=== PATIENT | male | born 1940 | race Caucasian/White ===

== ENCOUNTER 2019-06-04 12:51 | Outpatient (CLI) | payer MEDICARE, SELFPAY ==
[2019-06-04 14:09] LABS: Hematocrit 26.4 % (42.0-52.0); Hemoglobin 8.3 g/dL (14.0-18.0)
[2019-06-04 14:51] LABS: Iron 47 ug/dL (49-181)
[2019-06-04 15:00] LABS: Percent Iron Saturation 13 % (20-50)
== END 2019-06-04 12:52 | disposition home or self-care (01) ==
PROVIDERS: PCP Internal Medicine; Visit Provider Internal Medicine
DX: D64.9 Anemia, unspecified (principal); D50.9 Iron deficiency anemia, unspecified
CPT/HCPCS: 36415; 82607; 83540; 83550; 85014; 85018

== ENCOUNTER 2019-06-14 12:49 | Outpatient (CLI) | payer MEDICARE, SELFPAY ==
--- NOTE | ~2019-06-14 | XR_ITS ---
XR chest 2V DATE: 06/14/2019 13:31 INDICATION: Long-term use of amiodarone. Weakness. TECHNIQUE: PA and lateral views COMPARISON: 12/11/2017 portable AP chest FINDINGS: Status post posterior cervical spine surgical fusion. Right glenohumeral arthroplasty. Normal heart size. Aortic calcification and tortuosity. No hilar or mediastinal enlargement. No pulmonary infiltrate or consolidation, pleural effusion or pulmonary vascular congestion or pneumo thorax. Diffuse idiopathic skeletal hyperostosis of the thoracic spine. IMPRESSION: No active cardiopulmonary disease Reviewed, dictated and finalized at location B.
[2019-06-14 14:09] LABS: Basophils Percent Auto 0.2 % (0.2-1.2); Eosinophils Percent Auto 0.2 % (0-4.4); Immature Granulocyte Absolute 0.08 K/mm3 (0.00-0.031); Immature Granulocyte Percent A 0.9 % (0-0.5); Lymphocytes Percent Auto 8.9 % (18.3-44.2); Mean Corpuscular HGB Conc 28.4 g/dl (32-36); Mean Corpuscular Hemoglobin 34.6 pg (26-34); Mean Platelet Volume 11.3 fl (7.4-10.4); Monocytes Percent Auto 11.6 % (2.6-8.5); Neutrophils Percent Auto 78.2 % (45.5-73.1); Nucleated Red Blood Cells Absolute Auto 0.3 K/mm3 (0.0-0.012); Nucleated Red Blood Cells Perc 3.6 % (0.0-0.2); Platelet Count Result 235 k/mm3 (150-375); Red Blood Count 1.27 M/mm3 (4.6-6.20); Red Cell Distribution Width 19.6 % (11.5-14.5)
[2019-06-14 14:22] LABS: Alanine Aminotransferase 25 U/L (4-50); Albumin Level 3.1 g/dL (3.5-5.1); Alkaline Phosphatase 73 U/L (38-126); Aspartate Amino Transferase 37 U/L (17-59); Bilirubin,Total 0.3 mg/dL (0.2-1.3); Blood Urea Nitrogen 34 mg/dL (9-20); Calcium 8.5 mg/dL (8.4-10.2); Carbon Dioxide 23 mmol/L (22-30); Chloride 106 mmol/L (98-107); Estimated Glomerular Filt Rate 59; Glucose 175 mg/dL (75-110); Potassium 3.5 mmol/L (3.4-5.0); Sodium 137 mmol/L (137-145)
[2019-06-14 14:38] LABS: Hematocrit 15.5 % (42.0-52.0); Hemoglobin 4.4 g/dL (14.0-18.0)
[2019-06-14 14:39] LABS: Hypochromasia 2+ (NORMAL); Macrocytosis 2+ (NORMAL); Platelet Estimate Adequate (Adequate); Poikilocytosis 1+ (NORMAL)
[2019-06-14 14:58] LABS: Free T4 Free Thyroxine 0.55 ng/mL (0.78-2.19)
== END 2019-06-14 12:50 | disposition home or self-care (01) ==
PROVIDERS: PCP Internal Medicine; Visit Provider Internal Medicine Cardiovascular Disease
DX: Z79.899 Other long term (current) drug therapy (principal)
CPT/HCPCS: 36415; 71046; 80053; 84439; 84443; 85025

== ENCOUNTER 2019-06-14 15:47 | Inpatient (IN) | payer MEDICARE, SELFPAY ==
[2019-06-14] VITALS (21 sets, daily range): BP systolic 122–142; BP diastolic 48–99; PULSE 78–94; RESP 14–25; TEMP 36.3–36.9; O2SAT 60–100
--- NOTE | ~2019-06-14 | XR_ITS ---
EXAMINATION: XR UGI w small bowel EXAM DATE: 06/17/2019 10:17 INDICATION: Upper GI bleed, uncertain origin. Anemia. TECHNIQUE: Molder Offbearer radiograph was acquired. Standard single contrast barium upper GI examination was pe rformed followed by small bowel series according to patient abilities (mobility limitations). Spot i mages of the terminal ileum were acquired. The DAP for this procedure was 50 Gycm2. FINDINGS: Esophagus was not evaluated. The stomach has a normal appearance without evidence of mass lesion, ulc eration or filling defect. There is normal rugal fold pattern. The duodenum and duodenal sweep are normal in appearance. Ileal and jejunal fold patterns are normal. There is no small bowel wall thickening or mass effect d isplacing small bowel. There are no intraluminal filling defects identified. There is no small eloy l dilation. Terminal ileum is normal in appearance. Contrast reached the colon between 30 and 45 mi nutes time. IMPRESSION: Unremarkable stomach and small bowel. Reviewed, dictated and finalized at location A.
--- NOTE | 2019-06-14 16:03 | ECG_ITS ---
Measurements Intervals [place] Rate: 81 P: 23 IA: 202 QRS: 39 QRSD: 94 T: 60 QT: 305 QTc: 354 Interpretive Statements SINUS RHYTHM WITH FIRST DEGREE AV BLOCK INCOMPLETE RIGHT BUNDLE BRANCH BLOCK BORDERLINE ST-T WAVE ABNORMALITY- LATERAL LEADS BASELINE ARTIFACT- I, II, III, AVR, AVL, AVF, V1 ABNORMAL ECG Electronically Signed On 06-14-2019 17:07:53 CDT by Waqas Baum D.O.
--- NOTE | 2019-06-14 16:03 | ED.RECABL ---
HPI - Recheck/Abnormal Lab/Rx General Chief Complaint: Recheck/Abnormal Lab/Rx Stated Complaint: low blood count Time Seen by Provider: 06/14/19 16:01 Source: patient and RN notes reviewed Mode of arrival: other Limitations: no limitations History of Present Illness HPI narrative: Pt is a 79 y/o male who presents to the ED, from Dr. Mendoza's office, with c/o low H&H that began this morning. Pt's H&H while at Dr. Mendoza's office was 4.4. Pt also reports chronic dark stool d/t his iron pills and moderate SOB that is worsened with exertion. Pt denies blood in his stools, fever, cough, nausea, vomiting, and abdominal pain. Pt is taking Xarelto. complaint: abnormal lab Initial visit (ago): hour(s) Returns today for: called because of abnormal lab/test Description of abnormal result: Low H&H. Context: called for abnormal lab result Associated symptoms: shortness of breath (moderate, worsened with exertion) and other (chronic melena d/t his iron pills) Related Data Home Medications Medication Instructions Recorded Confirmed amiodarone 200 mg tablet 200 mg PO DAILY 03/30/19 atorvastatin 20 mg tablet 20 mg PO DAILY 03/30/19 diltiazem HCl 240 mg 240 mg PO DAILY 03/30/19 capsule,extended release 24 hr ibuprofen 600 mg tablet 600 mg PO TID 03/30/19 metformin 500 mg tablet 500 mg PO DAILY 03/30/19 rivaroxaban 20 mg tablet 20 mg PO QPM 03/30/19 ferrous sulfate [Feosol] 325 mg PO BID 06/14/19 Allergies Allergy/AdvReac Type Severity Reaction Status Date / Time No Known Allergies Allergy Verified 06/14/19 15:58 Review of Systems Review of Systems: Narrative: CONSTITUTIONAL: Denies fever. RESPIRATORY: Reports moderate dyspnea. Denies cough. GASTROINTESTINAL: Reports chronic melena d/t his iron pills. Denies hematochezia, nausea, vomiting, and abdominal pain. All systems reviewed & are unremarkable except as noted in HPI and below PMFSH Past Medical History Medical History (Updated 06/14/19 @ 17:04 by Nora Alejo MD) Acute anemia Arthritis Cataracts, bilateral Essential (primary) hypertension Gastro-esophageal reflux disease without esophagitis Gastrointestinal hemorrhage, unspecified History of rectal polyps Hyperlipidemia, unspecified Inguinal hernia Iron deficiency anemia, unspecified Low back pain MRSA (methicillin resistant Staphylococcus aureus) Peripheral neuropathy Seasonal allergies Staphylococcal arthritis, right shoulder Type II diabetes mellitus Surgical History Surgical History (Updated 06/14/19 @ 16:46 by Neeta Banuelos) H/O inguinal hernia repair H/O skin graft left leg H/O spinal fusion History of knee replacement, total bilateral History of rotator cuff surgery History of spinal surgery Hx of appendectomy Hx of tonsillectomy Family History Family History (Updated 06/14/19 @ 16:47 by Neeta Banuelos) Mother Arthritis Alzheimers disease Breast cancer Father Arthritis Lung cancer Social History Social History (Updated 06/14/19 @ 16:45 by Neeta Banuelos) Smoking packs per day: 1 Smoking cigarettes per day: 20.0 Smoking status: Former smoker Tobacco type: cigarettes Smoking end date: 03/31/71 Living arrangements: with family Additional living arrangements comments: Pt lives with his . Gender identity (if verbalized by the patient): Male Exam Narrative: Exam Narrative: GENERAL: Well-appearing, well-nourished, and in no acute distress. HEAD: Normocephalic, atraumatic. EYES: PERRLA and EOMI. ENT: Nares clear, no rhinorrhea or epistaxis. Mucous membranes moist. NECK: Supple. CHEST: Clear to auscultation. No respiratory distress. HEART: Regular rate and rhythm. No murmur heard. Normal peripheral pulses. EXTREMITIES: Normal range of motion. No edema. SKIN: Pale, warm, dry, no rash. NEURO: No focal deficits. Alert and oriented X3. Course Course Emergency Course: Patient presented for evaluation of low hemoglobin as found in his cardiolo
[2019-06-14 16:13] LABS: Basophils Percent Auto 0.3 % (0.2-1.2); Eosinophils Percent Auto 0.1 % (0-4.4); Immature Granulocyte Absolute 0.08 K/mm3 (0.00-0.031); Immature Granulocyte Percent A 0.7 % (0-0.5); Lymphocytes Percent Auto 10.3 % (18.3-44.2); Mean Corpuscular HGB Conc 29.4 g/dl (32-36); Mean Corpuscular Volume 122.4 fl (80-100); Mean Platelet Volume 10.9 fl (7.4-10.4); Monocytes Absolute Auto 1.7 K/mm3 (0.1-0.6); Monocytes Percent Auto 15.8 % (2.6-8.5); Neutrophils Absolute Auto 7.8 K/mm3 (1.3-6.7); Neutrophils Percent Auto 72.8 % (45.5-73.1); Nucleated Red Blood Cells Absolute Auto 0.4 K/mm3 (0.0-0.012); Nucleated Red Blood Cells Perc 3.7 % (0.0-0.2); Platelet Count Result 231 k/mm3 (150-375); Red Blood Count 1.25 M/mm3 (4.6-6.20); Red Cell Distribution Width 19.9 % (11.5-14.5); White Blood Count 10.7 K/mm3 (4.5-10.0)
[2019-06-14 16:22] LABS: Hemoglobin 4.5 g/dL (14.0-18.0)
[2019-06-14 16:23] LABS: Hematocrit 15.3 % (42.0-52.0)
[2019-06-14 16:24] LABS: Alanine Aminotransferase 26 U/L (4-50); Albumin Level 3.1 g/dL (3.5-5.1); Alkaline Phosphatase 83 U/L (38-126); Aspartate Amino Transferase 38 U/L (17-59); Bilirubin,Total 0.3 mg/dL (0.2-1.3); Blood Urea Nitrogen 35 mg/dL (9-20); Calcium 8.4 mg/dL (8.4-10.2); Carbon Dioxide 22 mmol/L (22-30); Chloride 105 mmol/L (98-107); Estimated Glomerular Filt Rate > 60; Glucose 123 mg/dL (75-110); Potassium 3.7 mmol/L (3.4-5.0); Sodium 135 mmol/L (137-145)
[2019-06-14 16:43] LABS: INR 1.5; Partial Thromboplastin Time 26.6 SECONDS (22.3-36.8); Prothrombin Time 17.4 Seconds (11.1-14.7)
[2019-06-14] MEDS: SODIUM CHLORIDE 0.9% IV 250 ML 30 ML IV CONT (17:49)
[2019-06-14] MEDS: PANTOPRAZOLE SODIUM IV 40 MG VIAL IV PUSH (17:49)
--- NOTE | 2019-06-14 21:18 | PM.IMHP ---
H&P: HPI History of Present Illness Chief complaint: low blood count Narrative: This is a 79 year old male with known atrial fibrillation on chronic Xarelto therapy who was referred to the hospital today after he was referred by his Data Entry Supervisor, Dr. Mendoza. The patient has had chronic black stools and has had generalized weakness for some time. He did complain to his Cardilogist that his exertional shortness of breath had been worsening. He denies vomiting up any dark material, nausea, lightheadedness, dizziness, chest pain or passing out. The patient was evaluated in the ER today and found to have a H/H of 4.5/15.3. He was guaiac positive on exam in the ER today. The patient was admitted for symptomatic anemia and given 2 units of pRBCs IV. His last colonoscopy and EGD were about 4 years ago and were normal. He does see Dr. Santillan for Gastroenterology. ER provider has consulted GI. No other complaint at this time. Review of Systems Review of Systems: All systems reviewed & are unremarkable except as noted in HPI and below PMFSH Past Medical History Medical History Acute anemia Arthritis Cataracts, bilateral Essential (primary) hypertension Gastro-esophageal reflux disease without esophagitis Gastrointestinal hemorrhage, unspecified History of rectal polyps Hyperlipidemia, unspecified Inguinal hernia Iron deficiency anemia, unspecified Low back pain MRSA (methicillin resistant Staphylococcus aureus) Peripheral neuropathy Seasonal allergies Staphylococcal arthritis, right shoulder Type II diabetes mellitus Surgical History Surgical History H/O inguinal hernia repair H/O skin graft left leg H/O spinal fusion History of knee replacement, total bilateral History of rotator cuff surgery History of spinal surgery Hx of appendectomy Hx of tonsillectomy Family History Family History Mother Arthritis Alzheimers disease Breast cancer Father Arthritis Lung cancer Social History Social History Smoking packs per day: 1 Smoking cigarettes per day: 20.0 Smoking status: Former smoker Tobacco type: cigarettes Smoking end date: 03/31/71 Alcohol intake: never Substance use: never Living arrangements: with family Additional living arrangements comments: Pt lives with his . Gender identity (if verbalized by the patient): Male Spiritual care concerns: No Meds Home Medications and Allergies Home Medications Medication Instructions Recorded Confirmed Type amiodarone 200 mg tablet 200 mg PO DAILY 03/30/19 06/14/19 History atorvastatin 20 mg tablet 20 mg PO DAILY 03/30/19 06/14/19 History diltiazem HCl 240 mg 240 mg PO DAILY 03/30/19 06/14/19 History capsule,extended release 24 hr ibuprofen 600 mg tablet 600 mg PO TID 03/30/19 06/14/19 History metformin 500 mg tablet 500 mg PO DAILY 03/30/19 06/14/19 History rivaroxaban 20 mg tablet 20 mg PO QPM 03/30/19 06/14/19 History ferrous sulfate [Feosol] 325 mg PO BID 06/14/19 06/14/19 History gabapentin 300 mg PO HS 06/14/19 06/14/19 History mecobalamin (vitamin B12) [B12 1,000 mcg PO DAILY 06/14/19 06/14/19 History Active] Allergies Allergy/AdvReac Type Severity Reaction Status Date / Time No Known Allergies Allergy Verified 06/14/19 15:58 Vital Signs Vital Signs - 24 hr 06/14/19 15:52 06/14/19 15:56 06/14/19 16:01 Temperature 36.3 C L Pulse Rate 94 87 84 Respiratory Rate 23 H 25 H 22 H Blood Pressure 136/53 L 136/53 L 122/99 H Pulse Oximetry 98 06/14/19 16:16 06/14/19 16:31 06/14/19 16:46 Temperature Pulse Rate 82 83 82 Respiratory Rate 19 21 H 15 Blood Pressure 139/65 137/53 L 133/60 Pulse Oximetry 06/14/19 17:01 06/14/19 17:16 06/14/19 17:31 Temperature Pulse Rate 82 83 81 R
[2019-06-15] VITALS (20 sets, daily range): BP systolic 110–149; BP diastolic 53–77; PULSE 60–84; RESP 16–24; TEMP 36.6–36.9; O2SAT 94–100
[2019-06-15] MEDS: SODIUM CHLORIDE 0.9% IV 1,000 ML 100 ML IV CONT (03:23)
[2019-06-15 04:35] LABS: Basophils Percent Auto 0.4 % (0.2-1.2); Eosinophils Absolute Auto 0.1 K/mm3 (0-0.3); Eosinophils Percent Auto 0.9 % (0-4.4); Hematocrit 21.1 % (42.0-52.0); Immature Granulocyte Absolute 0.05 K/mm3 (0.00-0.031); Immature Granulocyte Percent A 0.7 % (0-0.5); Lymphocytes Absolute Auto 1.06 K/mm3 (0.9-3.2); Lymphocytes Percent Auto 15.5 % (18.3-44.2); Mean Corpuscular HGB Conc 30.8 g/dl (32-36); Mean Corpuscular Volume 103.9 fl (80-100); Mean Platelet Volume 10.3 fl (7.4-10.4); Monocytes Absolute Auto 1.2 K/mm3 (0.1-0.6); Monocytes Percent Auto 17.7 % (2.6-8.5); Neutrophils Absolute Auto 4.4 K/mm3 (1.3-6.7); Neutrophils Percent Auto 64.8 % (45.5-73.1); Nucleated Red Blood Cells Absolute Auto 0.2 K/mm3 (0.0-0.012); Nucleated Red Blood Cells Perc 3.1 % (0.0-0.2); Platelet Count Result 186 k/mm3 (150-375); Red Blood Count 2.03 M/mm3 (4.6-6.20); Red Cell Distribution Width 22.4 % (11.5-14.5); White Blood Count 6.8 K/mm3 (4.5-10.0)
[2019-06-15 04:50] LABS: Hemoglobin 6.5 g/dL (14.0-18.0)
[2019-06-15 04:51] LABS: Blood Urea Nitrogen 29 mg/dL (9-20); Carbon Dioxide 27 mmol/L (22-30); Chloride 108 mmol/L (98-107); Estimated Glomerular Filt Rate > 60; Glucose 106 mg/dL (75-110); Potassium 3.6 mmol/L (3.4-5.0); Sodium 135 mmol/L (137-145)
--- NOTE | 2019-06-15 07:25 | WPDGICN ---
Assessment and Plan Additional Plan This is a 79-year-old white male patient seen in evaluation at the request of the emergency room. Patient reports gradual fatigue and weakness that has progressed over the last 1-2 months. Because of weakness he was seen by cardiology Dr. Mendoza. Laboratory testing revealed rather profound anemia with a hemoglobin of 4.5. Patient states that his stools have chronically been black in nature after being placed on iron replacement. His past history is significant for atrial fibrillation for which he is on chronic Xarelto anticoagulation. Patient reports 1 year ago had weakness at that time found to have peptic ulcer disease requiring an endoscopy. Patient denies any abdominal pain. He denies any obvious change in his bowel habits. His stools have been black as they have been for 1 year. Past medical history is significant for peptic ulcer. He has a history of rectal polyps. Is known to have chronic iron deficiency anemia on iron replacement. Past history also significant for atrial fibrillation on chronic warfarin anticoagulation. Family history is noncontributory. No history of colon or rectal disease. Current medications include amiodarone, atorvastatin, diltiazem, ferrous sulfate, gabapentin, ibuprofen, B12. Metformin, Xarelto. He has no stated drug allergies. Physical exam reveals patient to be alert. Vital signs stable. He is anicteric. Lungs are clear to auscultation and percussion. Heart is without murmur or extra sounds. Abdominal exam bowel sounds are present soft nontender with no hepatosplenomegaly. Digital external rectal exam unremarkable. Stools Hemoccult positive. Laboratory work reveals hemoglobin is 6.5, hematocrit 21 MCV 103. Platelets 186 K. protime is 17.4, INR 1.5. Impression 1. GI bleeding. Given his history of gastric ulcerations and current anticoagulation with Xarelto. Plan is to transfuse to a stable hemoglobin and patient will be started on proton pump inhibitor. Xarelto will be held for the immediate future. An EGD will be performed to assess for recurrent ulcer disease. A colonoscopy may be required subsequently. 2. History of rectal polyps. This is distant history. Consider colonoscopy if no findings by EGD. Patient may benefit from elective follow-up endoscopy given his prior history of colon polyps regardless. 3. Atrial fibrillation. 4. Xarelto anticoagulation. GI Consult Note Consult date/time: 06/15/19 07:25 HPI: Maximo Olmos is a 79 year old male [facility] Past Medical History Medical History Acute anemia Arthritis Cataracts, bilateral Essential (primary) hypertension Gastro-esophageal reflux disease without esophagitis Gastrointestinal hemorrhage, unspecified History of rectal polyps Hyperlipidemia, unspecified Inguinal hernia Iron deficiency anemia, unspecified Low back pain MRSA (methicillin resistant Staphylococcus aureus) Peripheral neuropathy Seasonal allergies Staphylococcal arthritis, right shoulder Type II diabetes mellitus Surgical History Surgical History H/O inguinal hernia repair H/O skin graft left leg H/O spinal fusion History of knee replacement, total bilateral History of rotator cuff surgery History of spinal surgery Hx of appendectomy Hx of tonsillectomy Family History Family History Mother Arthritis Alzheimers disease Breast cancer Father Arthritis Lung cancer Social History Social History Smoking packs per day: 1 Smoking cigarettes per day: 20.0 Smoking status: Former smoker Tobacco type: cigarettes Smoking end date: 03/31/71 Alcohol intake: never Substance use: never Living arrangements: with family Additional living arrangements comments: Pt lives with his . Ge
[2019-06-15] MEDS: SODIUM CHLORIDE 0.9% IV 250 ML 30 ML IV CONT (08:44)
[2019-06-15 08:53] LABS: Glucose Point of Care 120 (65-105)
--- NOTE | 2019-06-15 10:46 | PC.NURSE ---
To GI Lab per bethany at 1040. Blood still transfusing.
[2019-06-15] MEDS: LACTATED RINGERS 1,000 ML 150 ML IV CONT (11:02)
--- NOTE | 2019-06-15 11:19 | WPDANESEPPF ---
Anes - Initial Pre Proc Eval Procedure: Operation Date: 06/15/19 10:30 Proposed Procedures p Esophagogastroduodenoscopy - Tim Chun MD Date/Time: 06/15/19 11:19 Surgeon: Otto Li MD Pre Op Diagnosis: low blood count Patient Data Age: 79 Gender: M Height: 5 ft 6 in Weight: Last Vital Signs Temp 97.8 F 06/15/19 10:49 Pulse 84 06/15/19 10:49 Resp 18 06/15/19 10:49 BP 141/64 H 06/15/19 10:49 Pulse Ox 95 06/15/19 10:49 Allergies Allergy/AdvReac Type Severity Reaction Status Date / Time No Known Allergies Allergy Verified 06/15/19 10:48 Home Medications Medication Instructions Recorded Confirmed Type amiodarone 200 mg tablet 200 mg PO DAILY 03/30/19 06/14/19 History atorvastatin 20 mg tablet 20 mg PO DAILY 03/30/19 06/14/19 History diltiazem HCl 240 mg 240 mg PO DAILY 03/30/19 06/14/19 History capsule,extended release 24 hr ibuprofen 600 mg tablet 600 mg PO TID 03/30/19 06/14/19 History metformin 500 mg tablet 500 mg PO DAILY 03/30/19 06/14/19 History rivaroxaban 20 mg tablet 20 mg PO QPM 03/30/19 06/14/19 History ferrous sulfate [Feosol] 325 mg PO BID 06/14/19 06/14/19 History gabapentin 300 mg PO HS 06/14/19 06/14/19 History mecobalamin (vitamin B12) [B12 1,000 mcg PO DAILY 06/14/19 06/14/19 History Active] Laboratory Tests 06/14/19 06/14/19 06/14/19 16:04 16:04 16:04 WBC 10.7 K/mm3 H K/mm3 (4.5-10.0) RBC 1.25 M/mm3 L M/mm3 (4.6-6.20) Hgb 4.5 g/dL L* g/dL (14.0-18.0) Hct 15.3 % L* % (42.0-52.0) MCV 122.4 fl H fl (80-100) MCH 36.0 pg H pg (26-34) MCHC 29.4 g/dl L g/dl (32-36) RDW 19.9 % H % (11.5-14.5) Plt Count 231 k/mm3 k/mm3 (150-375) MPV 10.9 fl H fl (7.4-10.4) Immature Gran % (Auto) 0.7 % H % (0-0.5) Neut % (Auto) 72.8 % % (45.5-73.1) Lymph % (Auto) 10.3 % L % (18.3-44.2) [place] % (Auto) 15.8 % H % (2.6-8.5) Eos % (Auto) 0.1 % % (0-4.4) Baso % (Auto) 0.3 % % (0.2-1.2) Lymph # (Auto) 1.10 K/mm3 K/mm3 (0.9-3.2) [place] # (Auto) 1.7 K/mm3 H K/mm3 (0.1-0.6) Eos # (Auto) 0.0 K/mm3 K/mm3 (0-0.3) Baso # (Auto) 0.0 K/mm3 K/mm3 (0.0-0.1) Abs Immat Gran (auto) 0.08 K/mm3 H K/mm3 (0.00-0.031) Absolute Neuts (auto) 7.8 K/mm3 H K/mm3 (1.3-6.7) Absolute Nucleated RBC 0.4 K/mm3 H K/mm3 (0.0-0.012) Nucleated RBC % 3.7 % H % (0.0-0.2) PT INR APTT Sodium 135 mmol/L L mmol/L (137-145) Potassium 3.7 mmol/L mmol/L (3.4-5.0) Chloride 105 mmol/L mmol/L (98-107) Carbon Dioxide 22 mmol/L mmol/L (22-30) BUN 35 mg/dL H mg/dL (9-20) Creatinine 1.10 mg/dL mg/dL (0.7-1.3) Estim Creat Clear Calc Not Reportable Estimated GFR > 60 (59 - ) Glucose 123 mg/dL H mg/dL (75-110) POC Capillary Glucose Calcium 8.4 mg/dL mg/dL (8.4-10.2) Total Bilirubin 0.3 mg/dL mg/dL (0.2-1.3) AST 38 U/L U/L (17-59) ALT 26 U/L U/L (4-50) Alkaline Phosphatase 83 U/L U/L (38-126) Total Protein 6.0 g/dL L g/dL (6.3-8.2) Albumin 3.1 g/dL L g/dL (3.5-5.1) Blood Type A Positive Antibody Screen Negative Crossmatch See Detail 06/14/19 06/15/19 06/15/19 16:04 04:23 04:23 WBC 6.8 K/mm3 K/mm3 (4.5-10.0) RBC 2.03 M/mm3 L M/mm3 (4.6-6.20) Hgb 6.5 g/dL L* g/dL (14.0-18.0) Hct 21.1 % L % (42.0-52.0) MCV 103.9 fl H D fl (80-100) MCH 32.0 pg D pg (26-34) MCHC 30.8 g/dl L g/dl (32-36) RDW 22.4 % H % (11.5-14.5) Plt Count 186 k/mm3 k/mm3 (150-375) MPV 10.3 fl fl
--- NOTE | 2019-06-15 13:02 | PC.NURSE ---
Ret'd from GI Lab per nicole.
[2019-06-15] MEDS: AMIODARONE HCL 200 MG TABLET PO (13:08)
[2019-06-15] MEDS: ATORVASTATIN 20 MG TABLET PO (13:08)
[2019-06-15] MEDS: FERROUS SULFATE 324 MG TABLET PO ×2 (13:08→18:32)
[2019-06-15 13:19] LABS: Glucose Point of Care 108 (65-105)
[2019-06-15] MEDS: PEG (High)/E-LYTE SOLN 4,000 ML BTL 4000 ML PO (13:27)
[2019-06-15 13:49] LABS: Hematocrit 26.9 % (42.0-52.0); Hemoglobin 8.5 g/dL (14.0-18.0)
--- NOTE | 2019-06-15 14:01 | PM.IMPN ---
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 that was cauterized BID pantoprazole 06/15 colonoscopy planned (2) Symptomatic anemia: Code(s): D64.9 - Anemia, unspecified Status: Acute Assessment and Plan: Feels better after transfusion 06/13 hgb 4.4, 06/14 8.5 (3) Prediabetes: Code(s): R73.03 - Prediabetes Status: Chronic Assessment and Plan: Monitor Hold metformin (4) Atrial fibrillation: Qualifiers: Atrial fibrillation type: unspecified Qualified Code(s): I48.91 - Unspecified atrial fibrillation Code(s): I48.91 - Unspecified atrial fibrillation Status: Chronic Assessment and Plan: Hold anticoagulation Continue diltiazem and amiodarone If risk of bleeding remains high, consider Watchman procedure (5) Essential (primary) hypertension: Code(s): I10 - Essential (primary) hypertension Status: Chronic Assessment and Plan: Continue diltiazem Monitor (6) Gastro-esophageal reflux disease without esophagitis: Code(s): K21.9 - Gastro-esophageal reflux disease without esophagitis Status: Chronic Assessment and Plan: Continue BID pantoprazole Subjective Date/time seen: 06/15/19 14:01 Interval history: Admitted 06/13 for profound anemia, fatigue, villasenor. EGD done 06/14 AM showed angiodyplasia of gastric fundus. Patient tolerated well. Tolerating clear liquids and colonoscopy prep. Denied cp, edema, abd pain, bleeding. Review of Systems Review of Systems: All systems reviewed & are unremarkable except as noted in HPI and below Exam Narrative: Exam Narrative: HEENT: EOMI, PERRL, sclerae nonicteric, pharyngeal mucosa pink and intact NECK: No JVD, adenopathy, or thyromegaly CHEST: Clear to auscultation. Normal effort. HEART: NL S1/S2, regular, no murmur ABDOMEN: BS+, soft, nontender, no mass, no bruits EXTREMITIES: No cyanosis, edema, or clubbing NEUROLOGIC: CN intact and symmetric to inspection. MUSCULOSKELETAL: Tone and strength symmetric. PSYCH: Alert. Oriented to person, place, and time. Objective Data Vital Signs Vital Signs: Vital Signs - 24 hr 06/14/19 15:52 06/14/19 15:56 06/14/19 16:01 Temperature 97.3 F L Pulse Rate 94 87 84 Respiratory Rate 23 H 25 H 22 H Blood Pressure 136/53 L 136/53 L 122/99 H Pulse Oximetry 98 06/14/19 16:16 06/14/19 16:31 06/14/19 16:46 Temperature Pulse Rate 82 83 82 Respiratory Rate 19 21 H 15 Blood Pressure 139/65 137/53 L 133/60 Pulse Oximetry 06/14/19 17:01 06/14/19 17:16 06/14/19 17:31 Temperature Pulse Rate 82 83 81 Respiratory Rate 21 H 17 19 Blood Pressure 133/60 132/62 141/58 H Pulse Oximetry 60 L 95 93 06/14/19 17:48 06/14/19 17:59 06/14/19 18:02 Temperature 97.5 F L 98.1 F Pulse Rate 81 81 80 Respiratory Rate 17 17 14 Blood Pressure 130/57 L 122/56 L Pulse Oximetry 98 98 98 06/14/19 18:03 06/14/19 18:20 06/14/19 18:34 Temperature 98.1 F 98.3 F Pulse Rate 81 85 81 Respiratory Rate 23 H 18 23 H Blood Pressure 122/56 L 125/48 L Pulse Oximetry 96 98 96 06/14/19 19:03 06/14/19 19:50 06/14/19 20:00 Temperature 98.3 F 98.1 F Pulse Rate 83 80 82 Respiratory Rate 18 16 Blood Pressure 142/51 H 141/56 H Pulse Oximetry 100 100 06/14/19 22:00 06/14/19 22:47 06/14/19 23:02 Temperature 97.9 F 98.5 F 98.4 F Pulse Rate 78 78 78 Respiratory Rate 18 16 16 Blood Pressure 131/54 L 137/62 123/52 L Pulse Oximetry 97 97 95 06/15/19 00:00 06/15/19 00:02 06/15/19 01:57 Temperature 98.5 F 98.3 F Pulse Rate 78 78 76 Respiratory Rate 16 16 Blood Pressure
[2019-06-15 17:32] LABS: Glucose Point of Care 66 (65-105)
[2019-06-15 17:56] LABS: Glucose Point of Care 111 (65-105)
[2019-06-15] MEDS: GABAPENTIN 300 MG CAPSULE PO (20:48)
[2019-06-15] MEDS: PANTOPRAZOLE 40 MG TABLET PO (20:49)
[2019-06-15 21:42] LABS: Glucose Point of Care 91 (65-105)
[2019-06-16] VITALS (13 sets, daily range): BP systolic 85–151; BP diastolic 54–73; PULSE 69–84; RESP 16–21; TEMP 36.8–37.1; O2SAT 95–100
[2019-06-16 06:06] LABS: Hematocrit 25.5 % (42.0-52.0); Hemoglobin 8.2 g/dL (14.0-18.0); Mean Corpuscular HGB Conc 32.2 g/dl (32-36); Mean Corpuscular Hemoglobin 31.5 pg (26-34); Mean Corpuscular Volume 98.1 fl (80-100); Mean Platelet Volume 10.6 fl (7.4-10.4); Platelet Count Result 204 k/mm3 (150-375); Red Cell Distribution Width 23.9 % (11.5-14.5); White Blood Count 5.9 K/mm3 (4.5-10.0)
[2019-06-16 06:10] LABS: Blood Urea Nitrogen 15 mg/dL (9-20); Calcium 7.9 mg/dL (8.4-10.2); Carbon Dioxide 27 mmol/L (22-30); Chloride 109 mmol/L (98-107); Estimated Glomerular Filt Rate > 60; Glucose 101 mg/dL (75-110); Potassium 3.1 mmol/L (3.4-5.0); Sodium 138 mmol/L (137-145)
--- NOTE | 2019-06-16 07:30 | PM.IMPN ---
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 that was cauterized BID pantoprazole 06/15 colonoscopy planned (2) Symptomatic anemia: Code(s): D64.9 - Anemia, unspecified Status: Acute Assessment and Plan: Feels better after transfusion 06/13 hgb 4.4, 06/14 8.5, 06/15 8.2 (3) Prediabetes: Code(s): R73.03 - Prediabetes Status: Chronic Assessment and Plan: Monitor Hold metformin (4) Atrial fibrillation: Qualifiers: Atrial fibrillation type: unspecified Qualified Code(s): I48.91 - Unspecified atrial fibrillation Code(s): I48.91 - Unspecified atrial fibrillation Status: Chronic Assessment and Plan: Hold anticoagulation Continue diltiazem and amiodarone If no further bleeding, then resume anticoagulation 72 hrs post EGD If risk of bleeding remains high, consider Watchman procedure (5) Essential (primary) hypertension: Code(s): I10 - Essential (primary) hypertension Status: Chronic Assessment and Plan: Continue diltiazem Monitor (6) Gastro-esophageal reflux disease without esophagitis: Code(s): K21.9 - Gastro-esophageal reflux disease without esophagitis Status: Chronic Assessment and Plan: Continue BID pantoprazole Subjective Date/time seen: 06/16/19 07:30 Interval history: Admitted 06/13 for profound anemia, fatigue, villasenor. EGD done 06/14 AM showed angiodyplasia of gastric fundus. Tolerated clear liquids and colonoscopy prep. Denied cp, edema, abd pain, bleeding. Review of Systems Review of Systems: All systems reviewed & are unremarkable except as noted in HPI and below Exam Narrative: Exam Narrative: HEENT: EOMI, PERRL, sclerae nonicteric, pharyngeal mucosa pink and intact NECK: No JVD CHEST: Clear to auscultation. Normal effort. HEART: NL S1/S2, regular, no murmur ABDOMEN: BS+, soft, nontender, no mass, no bruits EXTREMITIES: No cyanosis, edema, or clubbing NEUROLOGIC: CN intact and symmetric to inspection. MUSCULOSKELETAL: Tone and strength symmetric. PSYCH: Alert. Oriented to person, place, and time. Objective Data Vital Signs Vital Signs: Vital Signs - 24 hr 06/15/19 08:00 06/15/19 08:25 06/15/19 08:40 Temperature 98.5 F 98.5 F Pulse Rate 60 82 74 Respiratory Rate 18 16 Blood Pressure 134/58 L 119/57 L Pulse Oximetry 94 96 06/15/19 08:46 06/15/19 09:46 06/15/19 10:49 Temperature 98.4 F 98.3 F 97.8 F Pulse Rate 73 74 84 Respiratory Rate 16 16 18 Blood Pressure 116/53 L 130/61 141/64 H Pulse Oximetry 95 99 95 06/15/19 12:19 06/15/19 12:29 06/15/19 12:39 Temperature 97.8 F Pulse Rate 67 64 64 Respiratory Rate 24 H 20 17 Blood Pressure 110/70 116/72 132/77 Pulse Oximetry 100 100 100 06/15/19 13:00 06/15/19 14:15 06/15/19 16:00 Temperature 98.4 F Pulse Rate 75 73 70 Respiratory Rate 18 18 Blood Pressure 139/67 142/68 H Pulse Oximetry 100 100 06/15/19 20:00 06/15/19 22:00 06/16/19 00:00 Temperature 98.5 F Pulse Rate 78 78 79 Respiratory Rate 18 Blood Pressure 149/71 H Pulse Oximetry 99 06/16/19 04:00 06/16/19 06:00 Temperature 98.3 F Pulse Rate 73 84 Respiratory Rate 18 Blood Pressure 151/73 H Pulse Oximetry 95 Intake/Output Intake/Output: Intake & Output 06/13/19 06/14/19 06/15/19 06/16/19 23:59 23:59 23:59 23:59 Intake Total 580 2840 150 Output Total 550 Balance 580 2840 -400 Meds/Results Medications: Active Medications Generic Name Dose Route Start Last Admin Trade Name Freq PRN Reason Stop Dose Admin Acetaminophen 650 mg 06/14/19 17:01
[2019-06-16 07:52] LABS: Glucose Point of Care 126 (65-105)
--- NOTE | 2019-06-16 08:02 | WPDANESPN ---
Anes - Prog Note Post-Op Date/Time: 06/16/19 08:02 Cardiovascular status: normal Respiratory status: normal Airway patency: baseline Mental status: baseline Post-Op hydration status: normal Vital Signs: Last Vital Signs Temp 36.8 C 06/16/19 06:00 Pulse 84 06/16/19 06:00 Resp 18 06/16/19 06:00 BP 151/73 H 06/16/19 06:00 Pulse Ox 95 06/16/19 06:00 I/O: Intake & Output 06/15/19 06/16/19 06/16/19 23:59 07:59 15:59 Intake Total 1440 150 Output Total 550 Balance 1440 -400 Laboratory Tests 06/16/19 05:19 06/16/19 05:19 06/14/19 06/15/19 06/15/19 16:04 08:48 13:16 WBC RBC Hgb Hct MCV MCH MCHC RDW Plt Count MPV Sodium Potassium Chloride Carbon Dioxide BUN Creatinine Estim Creat Clear Calc Estimated GFR Glucose POC Capillary Glucose 120 H 108 Calcium Blood Type A Positive Antibody Screen Negative Crossmatch See Detail 06/15/19 06/15/19 06/15/19 13:31 17:27 17:54 WBC RBC Hgb 8.5 L Hct 26.9 L MCV MCH MCHC RDW Plt Count MPV Sodium Potassium Chloride Carbon Dioxide BUN Creatinine Estim Creat Clear Calc Estimated GFR Glucose POC Capillary Glucose 66 111 H Calcium Blood Type Antibody Screen Crossmatch 06/15/19 06/16/19 06/16/19 20:51 05:19 05:19 WBC 5.9 RBC 2.60 L Hgb 8.2 L Hct 25.5 L MCV 98.1 D MCH 31.5 MCHC 32.2 RDW 23.9 H Plt Count 204 MPV 10.6 H Sodium 138 Potassium 3.1 L Chloride 109 H Carbon Dioxide 27 BUN 15 D Creatinine 0.90 Estim Creat Clear Calc Not Reportable Estimated GFR > 60 Glucose 101 POC Capillary Glucose 91 Calcium 7.9 L Blood Type Antibody Screen Crossmatch 06/16/19 07:50 WBC RBC Hgb Hct MCV MCH MCHC RDW Plt Count MPV Sodium Potassium Chloride Carbon Dioxide BUN Creatinine Estim Creat Clear Calc Estimated GFR Glucose POC Capillary Glucose 126 H Calcium Blood Type Antibody Screen Crossmatch Post-procedural complaints: none Patient Feedback: Patient satisfied with anesthetic care.
[2019-06-16 09:44] LABS: Glucose Point of Care 108 (65-105)
[2019-06-16] MEDS: LACTATED RINGERS 1,000 ML 150 ML IV CONT (09:53)
--- NOTE | 2019-06-16 10:19 | WPDANESEPP ---
Anes - Eval Pre Procedure Procedure: Operation Date: 06/15/19 10:30 Proposed Procedures p Esophagogastroduodenoscopy - Tim Chun MD Operation Date: 06/16/19 10:30 Proposed Procedures p Colonoscopy - Tim Chun MD Date/Time: 06/16/19 10:19 Pre Op Diagnosis: low blood count Patient Data Age: 79 Gender: M Height: 5 ft 6 in Weight: Last Vital Signs Temp 98.8 F 06/16/19 09:48 Pulse 77 06/16/19 09:59 Resp 16 06/16/19 09:48 BP 138/60 06/16/19 09:48 Pulse Ox 96 06/16/19 09:48 Allergies Allergy/AdvReac Type Severity Reaction Status Date / Time No Known Allergies Allergy Verified 06/15/19 10:48 Home Medications Medication Instructions Recorded Confirmed Type amiodarone 200 mg tablet 200 mg PO DAILY 03/30/19 06/14/19 History atorvastatin 20 mg tablet 20 mg PO DAILY 03/30/19 06/14/19 History diltiazem HCl 240 mg 240 mg PO DAILY 03/30/19 06/14/19 History capsule,extended release 24 hr ibuprofen 600 mg tablet 600 mg PO TID 03/30/19 06/14/19 History metformin 500 mg tablet 500 mg PO DAILY 03/30/19 06/14/19 History rivaroxaban 20 mg tablet 20 mg PO QPM 03/30/19 06/14/19 History ferrous sulfate [Feosol] 325 mg PO BID 06/14/19 06/14/19 History gabapentin 300 mg PO HS 06/14/19 06/14/19 History mecobalamin (vitamin B12) [B12 1,000 mcg PO DAILY 06/14/19 06/14/19 History Active] Laboratory Tests 06/14/19 06/15/19 06/15/19 16:04 13:16 13:31 WBC RBC Hgb 8.5 g/dL L g/dL (14.0-18.0) Hct 26.9 % L % (42.0-52.0) MCV MCH MCHC RDW Plt Count MPV Sodium Potassium Chloride Carbon Dioxide BUN Creatinine Estim Creat Clear Calc Estimated GFR Glucose POC Capillary Glucose 108 mg/dl mg/dl (65-105) Calcium Crossmatch See Detail 06/15/19 06/15/1906/14/20 17:27 17:54 20:51 WBC RBC Hgb Hct MCV MCH MCHC RDW Plt Count MPV Sodium Potassium Chloride Carbon Dioxide BUN Creatinine Estim Creat Clear Calc Estimated GFR Glucose POC Capillary Glucose 66 mg/dl mg/dl 111 mg/dl H mg/dl 91 mg/dl mg/dl (65-105) (65-105) (65-105) Calcium Crossmatch 06/16/19 06/16/19 06/16/19 05:19 05:19 07:50 WBC 5.9 K/mm3 K/mm3 (4.5-10.0) RBC 2.60 M/mm3 L M/mm3 (4.6-6.20) Hgb 8.2 g/dL L g/dL (14.0-18.0) Hct 25.5 % L % (42.0-52.0) MCV 98.1 fl D fl (80-100) MCH 31.5 pg pg (26-34) MCHC 32.2 g/dl g/dl (32-36) RDW 23.9 % H % (11.5-14.5) Plt Count 204 k/mm3 k/mm3 (150-375) MPV 10.6 fl H fl (7.4-10.4) Sodium 138 mmol/L mmol/L (137-145) Potassium 3.1 mmol/L L mmol/L (3.4-5.0) Chloride 109 mmol/L H mmol/L (98-107) Carbon Dioxide 27 mmol/L mmol/L (22-30) BUN 15 mg/dL D mg/dL (9-20) Creatinine 0.90 mg/dL mg/dL (0.7-1.3) Estim Creat Clear Calc Not Reportable Estimated GFR > 60 (59 - ) Glucose 101 mg/dL mg/dL (75-110) POC Capillary Glucose 126 mg/dl H mg/dl (65-105) Calcium 7.9 mg/dL L mg/dL (8.4-10.2) Crossmatch 06/16/19 09:42 WBC RBC Hgb Hct MCV MCH MCHC RDW Plt Count MPV Sodium Potassium Chloride Carbon Dioxide BUN Creatinine Estim Creat Clear Calc Estimated GFR Glucose POC Capillary Glucose 1
[2019-06-16] MEDS: SIMETHICONE ORAL SUSPENSION 20 MG/0.3 ML 30 ML BOTTLE 0.6 ML PO (10:33)
[2019-06-16] MEDS: POTASSIUM CHLORIDE 20 MEQ PACKET (FOR LIQUID) 40 MEQ (11:00)
[2019-06-16 11:11] LABS: Glucose Point of Care 109 (65-105)
[2019-06-16] MEDS: AMIODARONE HCL 200 MG TABLET PO (11:38)
[2019-06-16] MEDS: FERROUS SULFATE 324 MG TABLET PO ×2 (11:39→21:02)
[2019-06-16] MEDS: PANTOPRAZOLE 40 MG TABLET PO ×2 (11:39→21:02)
[2019-06-16] MEDS: ATORVASTATIN 20 MG TABLET PO (11:39)
[2019-06-16] MEDS: POTASSIUM CHLORIDE 20 MEQ PACKET (FOR LIQUID) 40 MEQ PO (11:54)
[2019-06-16 15:39] LABS: Glucose Point of Care 95 (65-105)
[2019-06-16] MEDS: GABAPENTIN 300 MG CAPSULE PO (21:02)
[2019-06-16 21:20] LABS: Glucose Point of Care 102 (65-105)
[2019-06-17] VITALS (11 sets, daily range): BP systolic 117–134; BP diastolic 56–70; PULSE 64–91; RESP 16–18; TEMP 36.6–37.3; O2SAT 95–100
[2019-06-17 06:18] LABS: Hematocrit 25.6 % (42.0-52.0); Mean Corpuscular HGB Conc 31.3 g/dl (32-36); Mean Corpuscular Hemoglobin 31.5 pg (26-34); Mean Corpuscular Volume 100.8 fl (80-100); Mean Platelet Volume 10.4 fl (7.4-10.4); Platelet Count Result 204 k/mm3 (150-375); Red Blood Count 2.54 M/mm3 (4.6-6.20); Red Cell Distribution Width 23.1 % (11.5-14.5); White Blood Count 6.7 K/mm3 (4.5-10.0)
[2019-06-17 06:27] LABS: Blood Urea Nitrogen 16 mg/dL (9-20); Calcium 7.8 mg/dL (8.4-10.2); Carbon Dioxide 26 mmol/L (22-30); Chloride 106 mmol/L (98-107); Estimated Glomerular Filt Rate > 60; Glucose 96 mg/dL (75-110); Potassium 3.5 mmol/L (3.4-5.0); Sodium 136 mmol/L (137-145)
--- NOTE | 2019-06-17 06:30 | P.CDI_ITS ---
CDI Query Clarification Request -Anemia status acute has been documented -Stool for occult blood positive per EDP -GI bleed has been documented - H&H 4.5/15.3 on arrival -3 units of blood transfused -06/16 H&H 8.0/25.6 Please further clarify type/cause of anemia: * Acute blood loss * Chronic blood loss * Acute on chronic blood loss * Other * Unable to determine <Zaida Joshi RN - Last Filed: 06/17/19 07:20>
--- NOTE | 2019-06-17 06:30 | WPDCDIQUERY2 ---
CDI Query Clarification Request -Anemia status acute has been documented -Stool for occult blood positive per EDP -GI bleed has been documented - H&H 4.5/15.3 on arrival -3 units of blood transfused -06/16 H&H 8.0/25.6 Please further clarify type/cause of anemia: Acute blood loss Chronic blood loss Acute on chronic blood loss Other Unable to determine <Zaida Joshi RN - Last Filed: 06/17/19 07:20>
[2019-06-17 07:59] LABS: Glucose Point of Care 103 (65-105)
--- NOTE | 2019-06-17 10:10 | WPDGIPROGNO ---
Progress Note: A&P Time Spent With Patient Time: Patient alert and comfortable this morning. No active bleeding identified. He denies abdominal pain. Physical exam vital Signs stable patient alert comfortable. Laboratory with hemoglobin 8.0, hematocrit 25.6, MCV 100.8. Impression 1. . Progressive anemia. Improved after transfusion. 2. 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 3. Occult blood in stool. Patient appears to have GI bleeding of obscure origin. I suspect he may have small-bowel AVMs. 4. Atrial fibrillation. He is on Xarelto anticoagulation for this. This likely contributes to his blood loss. Etiology of anemia unclear. 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 Plan is for small-bowel follow-through. He should have given small bowel capsule endoscopy arranged as an outpatient to assess for small bowel AVMs. Consider holding Xarelto if at all possible. Chronic iron replacement may be required. Hemoglobin should be monitored as an outpatient. Subjective Date/time seen: 06/17/19 10:10 Objective Data Vital Signs Vital Signs: Vital Signs - 24 hr 06/16/19 10:43 06/16/19 10:53 06/16/19 11:03 Temperature Pulse Rate 69 69 70 Respiratory Rate 21 H 21 H 16 Blood Pressure 85/55 L 91/59 L 114/69 Pulse Oximetry 97 99 100 06/16/19 11:39 06/16/19 14:00 06/16/19 16:00 Temperature 36.8 C 36.9 C Pulse Rate 74 78 74 Respiratory Rate 18 18 Blood Pressure 143/69 H 124/54 L Pulse Oximetry 99 99 06/16/19 20:00 06/16/19 21:35 06/17/19 00:00 Temperature 37.1 C Pulse Rate 70 72 72 Respiratory Rate 18 Blood Pressure 125/61 Pulse Oximetry 97 06/17/19 04:00 06/17/19 05:45 06/17/19 08:00 Temperature 37.3 C Pulse Rate 91 74 72 Respiratory Rate 18 Blood Pressure 123/70 Pulse Oximetry 100 Intake/Output Intake/Output: Intake & Output 06/14/19 06/15/19 06/16/19 06/17/19 23:59 23:59 23:59 23:59 Intake Total 580 2840 1320 240 Output Total 1350 Balance 580 2840 -30 240 Meds/Results Medications: Active Medications Generic Name Dose Route Start Last Admin Trade Name Freq PRN Reason Stop Dose Admin Acetaminophen 650 mg 06/14/19 17:01 Tylenol Tablet PO Q4H PRN Mild Pain (1-3) or Fever Amiodarone HCl 200 mg 06/15/19 08:00 06/16/19 11:38 Pacerone PO 200 mg DAILY@0800 LINK Administration Atorvastatin Calcium 20 mg 06/15/19 09:00 06/16/19 11:39 Lipitor PO 20 mg DAILY LINK Administration Dextrose 12.5 gm 06/15/19 04:11 Dextrose 50% Syringe IV PUSH PRN PRN Hypoglycemia Protocol Diltiazem HCl 240 mg 06/15/19 09:00 06/16/19 11:39 Cardizem Cd PO 240 mg DAILY LINK Administration Ferrous Sulfate 324 mg 06/15/19 08:00 06/16/19 21:02 Ferrous Sulfate PO 324 mg BIDWM LINK Administration Gabapentin 300 mg 06/15/19 21:00 06/16/19 21:02 Neurontin PO 300 mg HS [facility] Administration Glucagon 1 mg 06/15/19 04:11 Glucagon For Inj IM PRN PRN Hypoglycemia Protocol Dextrose 1,000 mls @ 100 mls/hr 06/15/19 04:11 Dextrose 5% 1,000 Ml IVPB PRN PRN Hypoglycemia Protocol Insulin Aspart 2 - 5 units 06/15/19 08:00 06/17/19 07:58 Novolog SUB-Q Not Given [facility] Protocol Lidocaine HCl 0.3 ml 06/15/19 07:31 Xylocaine 2% Local Inj INTRADERM ONCE PRN to numb area Ondansetron HCl 4 mg 06/14/19 17:01 Zofran Inj IV PUSH Q4H PRN Nausea Pantoprazole Sodium 40 mg 06/17/19 09:00 Protonix PO QAM LINK Simethicone 0.6 ml 06/16/19 10:33 06/16/19 10:33 Mylicon Infants Drops PO 0.6 ml ONCE PRN Administration Gas Discomfort Labs Labs: Laboratory Results - last 24 hr 06/16/19 06/16/19 06/16/19 11:08 15:36 21:04 WBC RBC Hgb Hct MCV MCH MCHC RDW Plt Count
[2019-06-17] MEDS: AMIODARONE HCL 200 MG TABLET PO (10:20)
[2019-06-17] MEDS: ATORVASTATIN 20 MG TABLET PO (10:21)
[2019-06-17] MEDS: PANTOPRAZOLE 40 MG TABLET PO (10:22)
[2019-06-17 11:48] LABS: Glucose Point of Care 96 (65-105)
--- NOTE | 2019-06-17 11:51 | PM.IMPN ---
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 that was cauterized BID pantoprazole 06/15 colonoscopy with 2 polyps (descending, rectal), few diverticula, internal hemorrhoids (3) Prediabetes: Code(s): R73.03 - Prediabetes Status: Chronic Assessment and Plan: Monitor Hold metformin 06/16 FBS 96 (4) Atrial fibrillation: Qualifiers: Atrial fibrillation type: unspecified Qualified Code(s): I48.91 - Unspecified atrial fibrillation Code(s): I48.91 - Unspecified atrial fibrillation Status: Chronic Assessment and Plan: Hold anticoagulation Continue diltiazem and amiodarone If no further bleeding, then resume anticoagulation 3 days post EGD (06/17) If risk of bleeding remains high, consider Watchman procedure (5) Essential (primary) hypertension: Code(s): I10 - Essential (primary) hypertension Status: Chronic Assessment and Plan: Continue diltiazem Monitor (6) Gastro-esophageal reflux disease without esophagitis: Code(s): K21.9 - Gastro-esophageal reflux disease without esophagitis Status: Chronic Assessment and Plan: Continue BID pantoprazole Subjective Date/time seen: 06/17/19 11:51 Interval history: Admitted 06/13 for profound anemia, fatigue, villasenor. EGD done 06/14 AM showed angiodyplasia of gastric fundus. Tolerated clear liquids and colonoscopy prep. 06/15 Colonoscopy unrevealing. Denied cp, edema, abd pain, bleeding. Review of Systems Review of Systems: All systems reviewed & are unremarkable except as noted in HPI and below Exam Narrative: Exam Narrative: HEENT: EOMI, PERRL, sclerae nonicteric, pharyngeal mucosa pink and intact NECK: No JVD CHEST: Clear to auscultation. Normal effort. HEART: NL S1/S2, regular, no murmur ABDOMEN: BS+, soft, nontender, no mass, no bruits EXTREMITIES: No cyanosis, edema, or clubbing NEUROLOGIC: CN intact and symmetric to inspection. MUSCULOSKELETAL: Tone and strength symmetric. PSYCH: Alert. Oriented to person, place, and time. Objective Data Vital Signs Vital Signs: Vital Signs - 24 hr 06/16/19 14:00 06/16/19 16:00 06/16/19 20:00 Temperature 98.4 F Pulse Rate 78 74 70 Respiratory Rate 18 Blood Pressure 124/54 L Pulse Oximetry 99 06/16/19 21:35 06/17/19 00:00 06/17/19 04:00 Temperature 98.7 F Pulse Rate 72 72 91 Respiratory Rate 18 Blood Pressure 125/61 Pulse Oximetry 97 06/17/19 05:45 06/17/19 08:00 06/17/19 10:18 Temperature 99.2 F 98.0 F Pulse Rate 74 72 70 Respiratory Rate 18 18 Blood Pressure 123/70 133/69 Pulse Oximetry 100 100 06/17/19 10:20 Temperature Pulse Rate 70 Respiratory Rate Blood Pressure Pulse Oximetry Intake/Output Intake/Output: Intake & Output 06/14/19 06/15/19 06/16/19 06/17/19 23:59 23:59 23:59 23:59 Intake Total 580 2840 1320 240 Output Total 1350 Balance 580 2840 -30 240 Meds/Results Medications: Active Medications Generic Name Dose Route Start Last Admin Trade Name Freq PRN Reason Stop Dose Admin Acetaminophen 650 mg 06/14/19 17:01 Tylenol Tablet PO Q4H PRN Mild Pain (1-3) or Fever Amiodarone HCl 200 mg 06/15/19 08:00 06/17/19 10:20 Pacerone PO 200 mg DAILY@0800 LINK Administration Atorvastatin Calcium 20 mg 06/15/19 09:00 06/17/19 10:21 Jackelin
[2019-06-17] MEDS: FERROUS SULFATE 324 MG TABLET PO ×2 (14:28→17:17)
[2019-06-17 17:33] LABS: Glucose Point of Care 129 (65-105)
[2019-06-17] MEDS: GABAPENTIN 300 MG CAPSULE PO (20:29)
[2019-06-17 20:41] LABS: Glucose Point of Care 106 (65-105)
[2019-06-18] VITALS: PULSE 65
[2019-06-18 04:00] VITALS: PULSE 78
[2019-06-18 05:59] LABS: Hematocrit 27.4 % (42.0-52.0); Hemoglobin 8.5 g/dL (14.0-18.0); Mean Corpuscular Hemoglobin 31.5 pg (26-34); Mean Corpuscular Volume 101.5 fl (80-100); Platelet Count Result 213 k/mm3 (150-375); White Blood Count 7.9 K/mm3 (4.5-10.0)
[2019-06-18 06:19] LABS: Blood Urea Nitrogen 14 mg/dL (9-20); Calcium 7.9 mg/dL (8.4-10.2); Carbon Dioxide 28 mmol/L (22-30); Chloride 106 mmol/L (98-107); Estimated CRCL calculation 47 ml/min; Estimated Glomerular Filt Rate 59; Glucose 102 mg/dL (75-110); Potassium 3.8 mmol/L (3.4-5.0); Sodium 138 mmol/L (137-145)
[2019-06-18 06:47] VITALS: BP 104/50; PULSE 78; RESP 18; TEMP 36.9; O2SAT 95
[2019-06-18 07:39] LABS: Glucose Point of Care 101 (65-105)
[2019-06-18 08:00] VITALS: PULSE 70
[2019-06-18] MEDS: PANTOPRAZOLE 40 MG TABLET PO (08:52)
[2019-06-18] MEDS: FERROUS SULFATE 324 MG TABLET PO (08:52)
[2019-06-18] MEDS: ATORVASTATIN 20 MG TABLET PO (08:53)
[2019-06-18] MEDS: AMIODARONE HCL 200 MG TABLET PO (08:53)
--- NOTE | 2019-06-18 10:29 | WPDGIPROGNO ---
Progress Note: A&P Additional Plan Patient comfortable this morning. No obvious additional GI blood loss. He denies abdominal pain. Tolerating diet. Physical exam alert. Vital signs stable. HEENT exam unremarkable. Lungs are clear to auscultation and percussion. Heart is without murmur abdominal exam is soft and nontender. Labs reveal hemoglobin 8.5, hematocrit 27.4, MCV 101.5. These appear stable. Impression 1. Chronic anemia has progressed recently. I am suspicious this is related to AVMs. One was noted by EGD this admission in several were noted on previous admission. He may have additional AVMs in the small bowel. Outpatient small bowel capsule endoscopy is advised. Chronic iron replacement may be helpful. He may require occasional transfusion. Subjective Date/time seen: 06/18/19 10:29 Objective Data Vital Signs Vital Signs: Vital Signs - 24 hr 06/17/19 12:00 06/17/19 14:14 06/17/19 16:00 Temperature 36.6 C Pulse Rate 74 75 69 Respiratory Rate 16 Blood Pressure 134/68 Pulse Oximetry 97 06/17/19 20:00 06/17/19 22:00 06/18/19 00:00 Temperature 37.1 C Pulse Rate 64 64 65 Respiratory Rate 18 Blood Pressure 117/56 L Pulse Oximetry 95 06/18/19 04:00 06/18/19 06:47 06/18/19 08:00 Temperature 36.9 C Pulse Rate 78 78 70 Respiratory Rate 18 Blood Pressure 104/50 L Pulse Oximetry 95 Intake/Output Intake/Output: Intake & Output 06/15/19 06/16/19 06/17/19 06/18/19 23:59 23:59 23:59 23:59 Intake Total 2840 1320 1235 840 Output Total 1350 Balance 2840 -30 1235 840 Meds/Results Medications: Active Medications Generic Name Dose Route Start Last Admin Trade Name Freq PRN Reason Stop Dose Admin Acetaminophen 650 mg 06/14/19 17:01 Tylenol Tablet PO Q4H PRN Mild Pain (1-3) or Fever Amiodarone HCl 200 mg 06/15/19 08:00 06/18/19 08:53 Pacerone PO 200 mg DAILY@0800 LINK Administration Atorvastatin Calcium 20 mg 06/15/19 09:00 06/18/19 08:53 Lipitor PO 20 mg DAILY LINK Administration Dextrose 12.5 gm 06/15/19 04:11 Dextrose 50% Syringe IV PUSH PRN PRN Hypoglycemia Protocol Diltiazem HCl 240 mg 06/15/19 09:00 06/18/19 08:53 Cardizem Cd PO 240 mg DAILY LINK Administration Ferrous Sulfate 324 mg 06/17/19 17:00 06/18/19 08:52 Ferrous Sulfate PO 324 mg BIDWM LINK Administration Gabapentin 300 mg 06/15/19 21:00 06/17/19 20:29 Neurontin PO 300 mg HS LINK Administration Glucagon 1 mg 06/15/19 04:11 Glucagon For Inj IM PRN PRN Hypoglycemia Protocol Dextrose 1,000 mls @ 100 mls/hr 06/15/19 04:11 Dextrose 5% 1,000 Ml IVPB PRN PRN Hypoglycemia Protocol Insulin Aspart 2 - 5 units 06/15/19 08:00 06/18/19 07:51 Novolog SUB-Q Not Given TID[facility] Protocol Lidocaine HCl 0.3 ml 06/15/19 07:31 Xylocaine 2% Local Inj INTRADERM ONCE PRN to numb area Ondansetron HCl 4 mg 06/14/19 17:01 Zofran Inj IV PUSH Q4H PRN Nausea Pantoprazole Sodium 40 mg 06/17/19 09:00 06/18/19 08:52 Protonix PO 40 mg QAM LINK Administration Simethicone 0.6 ml 06/16/19 10:33 06/16/19 10:33 Mylicon Infants Drops PO 0.6 ml ONCE PRN Administration Gas Discomfort Radiology Results: ITS Impressions Upper GI and Small Bowel X-Ray 06/17/19 11:09 IMPRESSION: Unremarkable stomach and small bowel. Labs Labs: Laboratory Results - last 24 hr 06/17/19 06/17/19 06/17/19 11:45 17:16 20:31 WBC RBC Hgb Hct MCV MCH MCHC RDW Plt Count MPV Sodium Potassium Chloride Carbon Dioxide BUN Creatinine Estim Creat Clear Calc Estimated GFR Glucose POC Capillary Glucose 96 129 H 106 Calcium 06/18/19 06/18/19 06/18/19 05:45 05:45 07:37 WBC 7.9 RBC 2.70 L Hgb 8.5 L Hct 27.4 L MCV 101.5 H
--- NOTE | 2019-06-18 10:40 | PM.DS ---
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) Status: Acute Assessment and Plan: Chronic GI losses likely due to andysplasia 06/13 hgb 4.4, 06/14 8.5, 06/15 8.2, 06/16 8.0 (2) GI bleed: Qualifiers: GI bleed type/associated pathology: unspecified gastrointestinal hemorrhage type Qualified Code(s): K92.2 - Gastrointestinal hemorrhage, unspecified Code(s): K92.2 - Gastrointestinal hemorrhage, unspecified Status: Acute Assessment and Plan: 06/14 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 that was cauterized BID pantoprazole 06/15 colonoscopy with 2 polyps (descending, rectal), few diverticula, internal hemorrhoids (3) Prediabetes: Code(s): R73.03 - Prediabetes Status: Chronic Assessment and Plan: Monitor Hold metformin 06/16 FBS 96 (4) Atrial fibrillation: Qualifiers: Atrial fibrillation type: unspecified Qualified Code(s): I48.91 - Unspecified atrial fibrillation Code(s): I48.91 - Unspecified atrial fibrillation Status: Chronic Assessment and Plan: Hold anticoagulation Continue diltiazem and amiodarone If no further bleeding, then resume anticoagulation 3 days post EGD (06/17) If risk of bleeding remains high, consider Watchman procedure (5) Essential (primary) hypertension: Code(s): I10 - Essential (primary) hypertension Status: Chronic Assessment and Plan: Continue diltiazem Monitor (6) Gastro-esophageal reflux disease without esophagitis: Code(s): K21.9 - Gastro-esophageal reflux disease without esophagitis Status: Chronic Assessment and Plan: Continue BID pantoprazole DS: Summary Hospital Course Reason for hospitalization: Anemia Hospital Course: This gentleman was referred to the hospital by his custom furrier due to low blood counts. He was found to be iron deficient. He is on chronic anticoagulation therapy for atrial fibrillation. He underwent an EGD 06/14 that showed gastric angiodysplasia. He was transfused as outlined below. Small-bowel x-ray was negative. Colonoscopy showed 2 small polyps with pathology pending, few diverticula, and internal hemorrhoids, all non bleeding. His angio dysplasia was cauterized. He had no further bleeding. He resumed anticoagulation 06/17. Gastroenterology recommended a capsule endoscopy as an outpatient. Time Spent with Patient Time attestation: Total time spent providing and/or coordinating discharge services: 35 min Exam Narrative: Exam Narrative: HEENT: EOMI, PERRL, sclerae nonicteric, pharyngeal mucosa pink and intact NECK: No JVD CHEST: Clear to auscultation. Normal effort. HEART: NL S1/S2, regular, no murmur ABDOMEN: BS+, soft, nontender, no mass, no bruits EXTREMITIES: No cyanosis, edema, or clubbing NEUROLOGIC: CN intact and symmetric to inspection. MUSCULOSKELETAL: Tone and strength symmetric. PSYCH: Alert. Oriented to person, place, and time. DS: Data Data Completed and Pending Completed studies during hospitalization: Pending at discharge 06/16/19 10:45 Surgical [PTH] Routine Labs on day of discharge: Labs from last 24 hours 06/18/19 06/18/19 06/18/19 07:37 05:45 05:45 WBC 7.9 RBC 2.70 L Hgb 8.5 L Hct 27.4 L MCV 101.5 H MCH 31.5 MCHC 31.0 L RDW 22.0 H Plt Count 213 MPV 10.0 Sodium 138 Potassium 3.8 Chloride 106 Carbon Dioxide 28 BUN 14 Creatinine 1.20 Estim Creat Clear Calc 47 Estimated GFR 59 Glucose 102 POC Capillary Glucose 101 Calcium 7.9 L 06/17/19 06/17/19 06/17/19 20:31 17:16 11:45 WBC RBC Hgb Hct MCV MCH MCHC RDW Plt Count MPV Sodium Potassium Chloride Carbon Dioxide BUN Creatini
== END 2019-06-18 13:50 | disposition home or self-care (01) | DRG 378 ==
LOC: ANHED 17:07 → ANH3MEDSUR 06-15 07:20
PROVIDERS: Family Medicine; Internal Medicine Gastroenterology; Admitting Provider Family Medicine; Emergency Provider Emergency Medicine; PCP Internal Medicine; Visit Provider Internal Medicine
PROC: 0DJ08ZZ Inspection of Upper Intestinal Tract, Via Natural or Artificial Opening Endoscopic (ICD-10-PCS; CPT 43235; principal; 2019-06-15 10:30)
PROC: 0DJD8ZZ Inspection of Lower Intestinal Tract, Via Natural or Artificial Opening Endoscopic (ICD-10-PCS; CPT 45378; principal; 2019-06-16 10:30)
DX: K31.811 Angiodysplasia of stomach and duodenum with bleeding (principal); I48.20 Chronic atrial fibrillation, unspecified; R73.03 Prediabetes; D50.0 Iron deficiency anemia secondary to blood loss (chronic); K21.9 Gastro-esophageal reflux disease without esophagitis; K22.2 Esophageal obstruction; I10 Essential (primary) hypertension; D12.4 Benign neoplasm of descending colon; D12.8 Benign neoplasm of rectum; K57.30 Diverticulosis of large intestine without perforation or abscess without bleeding; K64.8 Other hemorrhoids; D64.9 Anemia, unspecified; M19.90 Unspecified osteoarthritis, unspecified site; E78.5 Hyperlipidemia, unspecified; G62.9 Polyneuropathy, unspecified; J30.1 Allergic rhinitis due to pollen; H26.9 Unspecified cataract; Z96.653 Presence of artificial knee joint, bilateral; Z79.01 Long term (current) use of anticoagulants; Z98.1 Arthrodesis status; Z87.891 Personal history of nicotine dependence; Z23 Encounter for immunization
CPT/HCPCS: 36415; 36430; 71046; 74240; 74248; 80048; 80053; 84439; 84443; 85014; 85018; 85025; 85027; 85610; 85730; 86850; 86900; 86901; 86920; 88305; 90471; 90686; 93005; 96374; 99285; A9270; C9113; G0008; J1756; J2704; J7030; J7050; J7060; J7120; P9016

== ENCOUNTER 2019-06-21 10:08 | Outpatient (CLI) | payer MEDICARE, SELFPAY ==
[2019-06-21 10:31] LABS: Hematocrit 29.9 % (42.0-52.0); Hemoglobin 9.1 g/dL (14.0-18.0)
== END 2019-06-21 10:09 | disposition home or self-care (01) ==
PROVIDERS: PCP Internal Medicine; Visit Provider Internal Medicine
DX: K92.2 Gastrointestinal hemorrhage, unspecified (principal)
CPT/HCPCS: 36415; 85014; 85018

== ENCOUNTER 2019-06-28 12:02 | Outpatient (CLI) | payer MEDICARE, SELFPAY ==
[2019-06-28 12:27] LABS: Hematocrit 34.4 % (42.0-52.0); Hemoglobin 10.2 g/dL (14.0-18.0); Mean Corpuscular HGB Conc 29.7 g/dl (32-36); Mean Corpuscular Volume 104.6 fl (80-100); Mean Platelet Volume 9.7 fl (7.4-10.4); Platelet Count Result 339 k/mm3 (150-375); Red Blood Count 3.29 M/mm3 (4.6-6.20); Red Cell Distribution Width 18.6 % (11.5-14.5); White Blood Count 7.4 K/mm3 (4.5-10.0)
== END 2019-06-28 12:03 | disposition home or self-care (01) ==
PROVIDERS: PCP Internal Medicine; Visit Provider Nurse Practitioner
DX: D50.0 Iron deficiency anemia secondary to blood loss (chronic) (principal)
CPT/HCPCS: 36415; 85027

== ENCOUNTER 2019-08-19 13:50 | Outpatient (CLI) | payer MEDICARE, SELFPAY ==
[2019-08-19 14:56] LABS: Hematocrit 26.3 % (42.0-52.0); Mean Corpuscular HGB Conc 30.4 g/dl (32-36); Mean Corpuscular Hemoglobin 32.1 pg (26-34); Mean Corpuscular Volume 105.6 fl (80-100); Mean Platelet Volume 9.9 fl (7.4-10.4); Platelet Count Result 277 k/mm3 (150-375); Red Blood Count 2.49 M/mm3 (4.6-6.20); Red Cell Distribution Width 15.7 % (11.5-14.5); White Blood Count 5.1 K/mm3 (4.5-10.0)
== END 2019-08-19 13:51 | disposition home or self-care (01) ==
PROVIDERS: PCP Internal Medicine; Visit Provider Nurse Practitioner
DX: D50.0 Iron deficiency anemia secondary to blood loss (chronic) (principal)
CPT/HCPCS: 36415; 85027

== ENCOUNTER 2019-08-25 05:13 | Outpatient (CLI) | payer MEDICARE, SELFPAY ==
--- NOTE | 2019-08-25 06:47 | SUR.OPER ---
Patient brought to GI Lab. Instructions for patient undergoing Capsule Endoscopy reviewed with patient. Consent form signed. Sensor array applied to patient's abdomen and connected to recorded. Patient swallowed capsule with 12 ozs of water infused with Simethicone. Patient instructed they may have clear liquids at 0820 this AM and eat or drink at 1020 this AM. Patient instructed to return to GI Lab at 1500 this afternoon for removal of recording device and to call [phone] or to return to the hospital if any nausea and vomiting or abdominal pain is experienced. CARLITA REDDY
--- NOTE | 2019-08-25 14:55 | SUR.OPER ---
Patient arrived at 1450 for removal of [employer] equipment. No questions or concern verbalized from patient.
== END 2019-08-25 05:14 | disposition home or self-care (01) ==
PROVIDERS: PCP Internal Medicine; Visit Provider Internal Medicine Gastroenterology
PROC: 0DJ07ZZ Inspection of Upper Intestinal Tract, Via Natural or Artificial Opening (ICD-10-PCS; CPT 91110; principal; 2019-08-25 07:00)
DX: D50.9 Iron deficiency anemia, unspecified (principal)
CPT/HCPCS: 91110

== ENCOUNTER 2019-08-30 10:55 | Outpatient (CLI) | payer MEDICARE, SELFPAY ==
--- NOTE | ~2019-08-30 | XR_ITS ---
EXAMINATION: XR abdomen/kub 1V EXAM DATE: 08/30/2019 11:17 INDICATION: Capsule study. TECHNIQUE: Frontal projection(s) of the abdomen for interpretation. There is no prior study for kati mckeon. FINDINGS: Small capsulitis foreign body identified overlying expected location of the ileocecal valve . There is advanced lumbar spondylosis and mild to moderate levoscoliosis. Left inguinal surgical cli ps from hernia repair. Nonobstructive bowel gas pattern. IMPRESSION: Capsule-like foreign body overlying ileocecal valve region. Reviewed, dictated and finalized at location A.
== END 2019-08-30 10:56 | disposition home or self-care (01) ==
PROVIDERS: PCP Internal Medicine; Visit Provider Internal Medicine Gastroenterology
DX: Z12.11 Encounter for screening for malignant neoplasm of colon (principal)
CPT/HCPCS: 74018

== ENCOUNTER 2019-09-02 12:36 | Outpatient (CLI) | payer MEDICARE, SELFPAY ==
[2019-09-02 13:23] LABS: Hematocrit 26.8 % (42.0-52.0); Hemoglobin 8.2 g/dL (14.0-18.0); Mean Corpuscular HGB Conc 30.6 g/dl (32-36); Mean Corpuscular Hemoglobin 31.2 pg (26-34); Mean Corpuscular Volume 101.9 fl (80-100); Mean Platelet Volume 10.1 fl (7.4-10.4); Platelet Count Result 280 k/mm3 (150-375); Red Blood Count 2.63 M/mm3 (4.6-6.20); Red Cell Distribution Width 16.6 % (11.5-14.5); White Blood Count 5.1 K/mm3 (4.5-10.0)
== END 2019-09-02 12:37 | disposition home or self-care (01) ==
PROVIDERS: PCP Internal Medicine; Visit Provider Internal Medicine Gastroenterology
DX: D50.9 Iron deficiency anemia, unspecified (principal)
CPT/HCPCS: 36415; 85027

== ENCOUNTER 2019-09-17 12:57 | Outpatient (CLI) | payer MEDICARE, SELFPAY ==
--- NOTE | ~2019-09-17 | XR_ITS ---
EXAMINATION: XR abdomen/kub 1V INDICATION: Patient status post capsule endoscopy TECHNIQUE: Supine views of the abdomen were obtained on 2 radiographs. COMPARISON: 06/17/2019; CT, 07/21/2017 FINDINGS: A 7 mm radiopaque density projects in the right mid abdomen at the expected location of the ileocecal valve. No definite internal electronic components are identified. This was not present on the patcher helper radiograph of the small bowel follow-through performed 06/17/2019. CT scan performed 07/22/19 18 demonstrates a tiny diverticulum of the cecum in this location. Surgical changes and phleboliths a re noted in the pelvis. The bowel gas pattern is normal. There is severe lumbar spondylosis. IMPRESSION: 1. Radiopaque density in the right mid abdomen, favor retained contrast in a diverticulum over retain ed capsule. Reviewed, dictated and finalized at location A. IMPRESSION: 1. Radiopaque density in the right mid abdomen, favor retained contrast in a di verticulum over retained capsule.
== END 2019-09-17 12:58 | disposition home or self-care (01) ==
PROVIDERS: PCP Internal Medicine; Visit Provider Internal Medicine Gastroenterology
DX: Z12.11 Encounter for screening for malignant neoplasm of colon (principal); R93.89 Abnormal findings on diagnostic imaging of other specified body structures
CPT/HCPCS: 74018

== ENCOUNTER 2019-10-04 13:32 | Outpatient (CLI) | payer MEDICARE, SELFPAY ==
[2019-10-04 14:18] LABS: Mean Corpuscular HGB Conc 29.9 g/dl (32-36); Mean Corpuscular Hemoglobin 33.8 pg (26-34); Mean Corpuscular Volume 112.9 fl (80-100); Mean Platelet Volume 10.2 fl (7.4-10.4); Platelet Count Result 161 k/mm3 (150-375); Red Blood Count 1.39 M/mm3 (4.6-6.20); Red Cell Distribution Width 21.2 % (11.5-14.5)
[2019-10-04 14:24] LABS: Hematocrit 15.7 % (42.0-52.0); Hemoglobin 4.7 g/dL (14.0-18.0)
== END 2019-10-04 13:33 | disposition home or self-care (01) ==
PROVIDERS: PCP Internal Medicine; Visit Provider Internal Medicine Gastroenterology
DX: D50.9 Iron deficiency anemia, unspecified (principal)
CPT/HCPCS: 36415; 85027

== ENCOUNTER 2019-10-04 16:32 | Observation (INO) | payer MEDICARE, SELFPAY ==
[2019-10-04] VITALS (10 sets, daily range): BP systolic 130–143; BP diastolic 50–71; PULSE 71–82; RESP 16–18; TEMP 36.1–36.9; O2SAT 96–100; BMI 28.8
[2019-10-04 17:08] LABS: Basophils Percent Auto 0.2 % (0.2-1.2); Eosinophils Absolute Auto 0.1 K/mm3 (0-0.3); Eosinophils Percent Auto 0.8 % (0-4.4); Immature Granulocyte Absolute 0.06 K/mm3 (0.00-0.031); Immature Granulocyte Percent A 0.7 % (0-0.5); Lymphocytes Absolute Auto 1.09 K/mm3 (0.9-3.2); Mean Corpuscular HGB Conc 29.1 g/dl (32-36); Mean Corpuscular Hemoglobin 33.3 pg (26-34); Mean Corpuscular Volume 114.7 fl (80-100); Mean Platelet Volume 10.8 fl (7.4-10.4); Monocytes Absolute Auto 1.2 K/mm3 (0.1-0.6); Monocytes Percent Auto 14.4 % (2.6-8.5); Neutrophils Absolute Auto 5.9 K/mm3 (1.3-6.7); Neutrophils Percent Auto 70.9 % (45.5-73.1); Nucleated Red Blood Cells Absolute Auto 0.2 K/mm3 (0.0-0.012); Nucleated Red Blood Cells Perc 1.9 % (0.0-0.2); Platelet Count Result 175 k/mm3 (150-375); Red Cell Distribution Width 21.4 % (11.5-14.5); White Blood Count 8.4 K/mm3 (4.5-10.0)
[2019-10-04 17:14] LABS: Hematocrit 17.2 % (42.0-52.0)
[2019-10-04 17:17] LABS: INR 1.4; Prothrombin Time 16.8 Seconds (11.1-14.7)
[2019-10-04 17:18] LABS: Partial Thromboplastin Time 25.6 SECONDS (22.3-36.8)
[2019-10-04 17:21] LABS: Alanine Aminotransferase 32 U/L (4-50); Albumin Level 3.5 g/dL (3.5-5.1); Alkaline Phosphatase 73 U/L (38-126); Aspartate Amino Transferase 43 U/L (17-59); Bilirubin,Total 0.2 mg/dL (0.2-1.3); Blood Urea Nitrogen 44 mg/dL (9-20); Calcium 8.4 mg/dL (8.4-10.2); Carbon Dioxide 22 mmol/L (22-30); Chloride 104 mmol/L (98-107); Estimated CRCL calculation 40 ml/min; Estimated Glomerular Filt Rate 59; Glucose 114 mg/dL (75-110); Potassium 3.7 mmol/L (3.4-5.0); Sodium 133 mmol/L (137-145)
--- NOTE | 2019-10-04 17:22 | ED.GENADULT ---
HPI - General Adult General Chief complaint: Recheck/Abnormal Lab/Rx Stated complaint: low hemoglobin Time Seen by Provider: 10/04/19 16:45 History of Present Illness HPI narrative: Patient is a 79 y/o male complaining of low blood count. He state states that he had outpatient lab drawn earlier today and his Hgb was 4.7. He was directed by Dr. Chun to come to ED. He states that he has been feeling tired for about 1 week. He denies any abdominal pain, dark stool, bloody stool or vomiting blood. Related Data Home Medications Medication Instructions Recorded Confirmed diltiazem HCl 240 mg PO DAILY 10/04/19 Allergies Allergy/AdvReac Type Severity Reaction Status Date / Time No Known Allergies Allergy Unverified 02/11/19 15:42 Review of Systems Constitutional: Constitutional: Denies chills, Denies fever(s), Denies headache(s), Reports malaise and Reports weakness Eyes: Eyes: Denies blurry vision ENT: Denies headache(s) and Denies neck pain Cardiovascular: Cardiovascular: Denies chest pain and Denies dyspnea Respiratory: Respiratory: Denies cough and Denies dyspnea Gastrointestinal: Gastrointestinal: Denies abdominal pain, Denies diarrhea, Denies nausea and Denies vomiting Genitourinary: Genitourinary: Denies hematuria and Denies dysuria Musculoskeletal: Musculoskeletal: Denies back pain and Denies neck pain Neurologic: Denies headache(s) and Denies weakness [facility] Family History Family History Other Diabetes mellitus Family history of Alzheimer's disease Family history of arthritis Family history of malignant neoplasm Social History Social History Smoking end date: 03/31/71 Alcohol intake: current Exam Const: General: no acute distress and well developed Orientation/consciousness: oriented to person, oriented to place, oriented to time and patient oriented x3 HENMT: Head: normocephalic Ears: external ears normal General nose exam: Normal external nose present Eyes: General: appearance normal, both eyes and all related structures Conjunctivae: conjunctivae normal Neck: Neck: normal visual inspection and full ROM Chest: Chest palpation & inspection: normal inspection of the chest and no tenderness Resp: Effort & Inspection: normal respiratory effort Auscultation: clear to auscultation bilaterally Cardio: Rate: regular rate Rhythm: regular rhythm GI: GI Palp: No abdominal tenderness and Yes Soft to palpation Skin: General skin exam: normal color and turgor normal Neuro: General: oriented to person, oriented to place, oriented to time and patient oriented x3 Cognition (Neuro): normal cognition Extrem: General: normal to inspection, full ROM and no pedal edema Psych: Appearance: grossly normal Mental Status: mental status grossly normal Affect: normal affect Course Consultations Consultation #1: Discussed with Dr. Chun, who recommends transfuse 2 units of blood and he will consult. Date: 10/04/19 Time: 17:50 Consultation #2: Discussed with ANIYA Hendrix, who agrees to admit to Dr. Li. Date: 10/04/19 Time: 18:15 Vital Signs Vital signs: Vital Signs Temperature 36.8 C 10/04/19 16:50 Pulse Rate 82 10/04/19 16:50 Respiratory Rate 18 10/04/19 16:50 Blood Pressure 140/50 L 10/04/19 16:50 Pulse Oximetry 100 10/04/19 16:50 Temperature 36.9 C 10/04/19 19:26 Pulse Rate 79 10/04/19 19:26 Respiratory Rate 18 10/04/19 19:26 Blood Pressure 143/68 H 10/04/19 19:26 Pulse Oximetry 99 10/04/19 19:26 Medical Decision Making Vital Signs Vital Signs: Vital Signs Temperature 36.8 C 10/04/19 16:50 Pulse Rate 82 10/04/19 16:50 Respiratory Rate 18 10/04/19 16:50 Blood Pressure 140/50 L 10/04/19 16:50 Pulse Oximetry 100 10/04/19 16:50 Temperature 36.9 C 10/04/19 19:26 Pulse Rate 79 10/04/19 19:26 Respiratory Rate 18
[2019-10-04 17:29] LABS: Hypochromasia 2+ (NORMAL); Platelet Estimate Adequate (Adequate)
[2019-10-04 17:32] LABS: Anisocytosis 3+ (NORMAL)
[2019-10-04] MEDS: SODIUM CHLORIDE 0.9% IV 250 ML 30 ML IV CONT (19:13)
[2019-10-04] MEDS: TUBING, BLOOD SET 1 EACH XX (19:13)
--- NOTE | 2019-10-04 20:10 | ADMGEN ---
This patient, Maximo Olmos, was admitted to Medical Room 345-01. Patient/family oriented to hospital policies and general routines including ID bracelet, bed and alarms, visiting hours, pain management, procedures, bathroom and other care routines, personal items, smoking policy, room service/diet, and visiting hours. Valuables list has been completed. Information on how to activate the Rapid Response Team has been discussed. Patient/Family are encouraged to report perceived risks to care and to ask questions if they do not understand what they are told or what they should do.
[2019-10-04 21:11] LABS: Glucose Point of Care 105 (65-105)
--- NOTE | 2019-10-04 21:57 | ECG_ITS ---
Measurements Intervals Alda Rate: 84 P: 39 NV: 191 QRS: 56 QRSD: 100 T: 58 QT: 303 QTc: 360 Interpretive Statements SINUS RHYTHM BORDERLINE AV CONDUCTION DELAY BORDERLINE T WAVE ABNORMALITY- HIGH LATERAL LEADS BORDERLINE ECG Electronically Signed On 10-05-2019 7:02:01 CDT by Waqas Baum D.O.
--- NOTE | 2019-10-04 23:32 | PM.IMHP ---
H&P: HPI History of Present Illness Chief complaint: anemia Narrative: This is a 79 Diabetic male with known history of paroxysmal atrial fibrillation on Xarelto therapy and chronic back pain who presented to the hospital after Dr. Chun found his Hgb to be 4.7 today. The patient has had two previous hospitalizations in the recent past which required blood transfusions for anemia and has had various endoscopic procedures by Dr. Chun which so far have not uncovered any sources of GI bleeding. He has had generalized weakness and exertional shortness of breath over the past few weeks although he denies any chest pain or dizziness. He has chronic black stools which he attributes to iron supplements. He denies any bright red rectal bleeding. He also has not had any nausea, vomiting, chest pain or abdominal pain. The patient also takes 600 mg of Ibuprofen 2-3 times daily for chronic back pain. He also admits to drinking 2 beers daily. He is scheduled to have a stress test this upcoming Friday by Cardiology. The patient has been admitted to the hospital and currently receiving his second unit of pRBCs. He denies any fevers, chills, cough or other symptoms. He has not seen hematology for his chronic symptomatic anemia. Review of Systems Review of Systems: All systems reviewed & are unremarkable except as noted in HPI and below PMFSH Past Medical History Medical History Anemia due to chronic blood loss Arthritis Cataracts, bilateral Chronic back pain Diabetes mellitus Essential (primary) hypertension Gastro-esophageal reflux disease without esophagitis Gastrointestinal hemorrhage, unspecified History of rectal polyps Hyperlipidemia, unspecified Inguinal hernia Iron deficiency anemia, unspecified Low back pain MRSA (methicillin resistant Staphylococcus aureus) Paroxysmal atrial fibrillation Peripheral neuropathy Seasonal allergies Staphylococcal arthritis, right shoulder Type II diabetes mellitus Surgical History Surgical History H/O endoscopy H/O inguinal hernia repair H/O skin graft left leg H/O spinal fusion History of knee replacement, total bilateral History of rotator cuff surgery History of spinal surgery Hx of appendectomy Hx of tonsillectomy S/P cervical spinal fusion Family History Family History Mother Breast cancer Alzheimer disease Father Lung cancer Mother Arthritis Alzheimer disease Breast cancer Father Arthritis Lung cancer Social History Social History Smoking packs per day: 1 Smoking cigarettes per day: 20.0 Years smoked: 10 Smoking pack-years: 10.00 Smoking status: Former smoker Tobacco type: cigarettes Smoking end date: 03/31/71 Alcohol intake: current Drinks per week: 14 Substance use: never Substance use type: does not use Additional living arrangements comments: Pt lives with his . Gender identity (if verbalized by the patient): Male Spiritual care concerns: No Meds Home Medications and Allergies Home Medications Medication Instructions Recorded Confirmed Type metformin 500 mg tablet 500 mg PO DAILY #90 tablet 02/11/19 10/04/19 Rx amiodarone 200 mg tablet 200 mg PO DAILY 03/30/19 06/14/19 History diltiazem HCl 240 mg 240 mg PO DAILY 03/30/19 06/14/19 History capsule,extended release 24 hr rivaroxaban 20 mg tablet 20 mg PO QPM 03/30/19 06/14/19 History B12 Active 1,000 mcg PO DAILY 06/14/19 06/14/19 History ferrous sulfate [Feosol] 325 mg PO BID 06/14/19 06/14/19 History gabapentin 300 mg PO HS 06/14/19 06/14/19 History pantoprazole 40 mg PO QAM #30 tablet 06/18/19 Rx atorvastatin 20 mg tablet 20 mg PO DAILY #90 tablet 07/08/19 Rx metformin 500 mg tablet 500 mg PO DAILY #90 tablet 09/16/19 Rx diltiazem HCl 240 mg PO DA
[2019-10-05] MEDS: GABAPENTIN 300 MG CAPSULE 600 MG PO ×2 (00:14→20:44)
[2019-10-05 00:15] VITALS: BP 138/66; PULSE 72; RESP 15; TEMP 36.1; O2SAT 100
[2019-10-05 00:45] LABS: Blood Urea Nitrogen 37 mg/dL (9-20); Calcium 8.1 mg/dL (8.4-10.2); Carbon Dioxide 24 mmol/L (22-30); Chloride 107 mmol/L (98-107); Estimated CRCL calculation 43 ml/min; Estimated Glomerular Filt Rate > 60; Glucose 134 mg/dL (75-110); Potassium 3.7 mmol/L (3.4-5.0); Sodium 134 mmol/L (137-145)
[2019-10-05 01:15] VITALS: BP 119/67; PULSE 67; RESP 13; TEMP 36.1; O2SAT 96
[2019-10-05 01:55] VITALS: BP 121/65; PULSE 72; RESP 15; TEMP 36.1; O2SAT 98
[2019-10-05 06:00] VITALS: BP 146/73; PULSE 77; RESP 18; TEMP 36.3; O2SAT 100
[2019-10-05 06:03] LABS: Basophils Percent Auto 0.5 % (0.2-1.2); Eosinophils Absolute Auto 0.1 K/mm3 (0-0.3); Hematocrit 23.4 % (42.0-52.0); Hemoglobin 7.5 g/dL (14.0-18.0); Immature Granulocyte Absolute 0.02 K/mm3 (0.00-0.031); Immature Granulocyte Percent A 0.3 % (0-0.5); Lymphocytes Absolute Auto 0.84 K/mm3 (0.9-3.2); Lymphocytes Percent Auto 14.2 % (18.3-44.2); Mean Corpuscular HGB Conc 32.1 g/dl (32-36); Mean Corpuscular Hemoglobin 32.2 pg (26-34); Mean Corpuscular Volume 100.4 fl (80-100); Mean Platelet Volume 10.5 fl (7.4-10.4); Monocytes Percent Auto 17.2 % (2.6-8.5); Neutrophils Absolute Auto 3.9 K/mm3 (1.3-6.7); Neutrophils Percent Auto 65.8 % (45.5-73.1); Nucleated Red Blood Cells Absolute Auto 0.1 K/mm3 (0.0-0.012); Nucleated Red Blood Cells Perc 0.8 % (0.0-0.2); Platelet Count Result 157 k/mm3 (150-375); Red Blood Count 2.33 M/mm3 (4.6-6.20); Red Cell Distribution Width 22.5 % (11.5-14.5); White Blood Count 5.9 K/mm3 (4.5-10.0)
[2019-10-05 07:51] LABS: Hematocrit 24.6 % (42.0-52.0); Hemoglobin 7.9 g/dL (14.0-18.0)
[2019-10-05] MEDS: metFORMIN HCL 500 MG TABLET PO (08:12)
--- NOTE | 2019-10-05 08:17 | WPDGICN ---
Assessment and Plan Assessment and plan (1) Anemia: Code(s): D64.9 - Anemia, unspecified Status: Acute Assessment and Plan: Patient has macrocytic anemia. Presumed to be from chronic GI blood loss. Previous workup revealed iron deficiency with occult blood in stools. Chronic GI bleeding suspected. At this point it will be [place] is for series for him to hold the Xarelto. Patient is identified as having gastric upper GI angiodysplasias. These is the most likely etiology for his chronic bleeding. Plan is for follow-up EGD electively as an outpatient. Chronic iron replacement suggested. (2) Paroxysmal atrial fibrillation: Code(s): I48.0 - Paroxysmal atrial fibrillation Status: Chronic Assessment and Plan: Patient has previously been on Xarelto. But because of continuing recurrent significant GI blood loss. This will need to be held. (3) Gastric AVM: Code(s): K31.819 - Angiodysplasia of stomach and duodenum without bleeding Status: Acute Assessment and Plan: Patient has a known history of upper GI angiodysplasias. Plan is for outpatient follow-up EGD while patient is off of anticoagulation. No AVMs were identified and recent small bowel capsule endoscopy. (4) History of colon polyps: Code(s): Z86.010 - Personal history of colonic polyps Status: Acute Assessment and Plan: Recent colon polyp removed was an adenoma. Follow-up colonoscopy in several years advised. GI Consult Note Consult date/time: 10/05/19 08:17 HPI: Maximo Olmos is a 79 year old male followed by Dr. Mihir Kent. Patient has had significant anemia. Outpatient workup has been in progress. One month ago is hemoglobin was 8.5. Yesterday follow-up CBC revealed a hemoglobin of 4.7. For this reason patient was admitted to the hospital for further evaluation. Patient denies any obvious blood in his stools. He does have a history of atrial fibrillation for which she is maintained on Xarelto anticoagulation. Recent GI workup includes an EGD with angiodysplasias of the stomach. These were cauterized. A colonoscopy was performed in several adenomatous colon polyps were removed. A recent small bowel capsule study was essentially unremarkable. Patient did well however routine blood count revealed decline in hemoglobin as stated. Review of Systems Review of Systems: All systems reviewed & are unremarkable except as noted in HPI and below PMFSH Past Medical History Medical History Chronic back pain Diabetes mellitus Paroxysmal atrial fibrillation Surgical History Surgical History H/O endoscopy S/P cervical spinal fusion Family History Family History Mother Breast cancer Alzheimer disease Father Lung cancer Social History Social History Smoking packs per day: 1 Smoking cigarettes per day: 20.0 Years smoked: 10 Smoking pack-years: 10.00 Smoking status: Former smoker Smoking end date: 03/31/71 Alcohol intake: current Drinks per week: 14 Substance use: never Substance use type: does not use Gender identity (if verbalized by the patient): Male Spiritual care concerns: No Meds Home Medications and Allergies Home Medications Medication Instructions Recorded Confirmed Type metformin 500 mg tablet 500 mg PO DAILY #90 tablet 02/11/19 10/04/19 Rx diltiazem HCl 240 mg PO DAILY 10/04/19 10/04/19 History gabapentin 600 mg PO HS 10/04/19 10/04/19 History ibuprofen 600 mg PO DAILY 10/04/19 10/04/19 History Allergies Allergy/AdvReac Type Severity Reaction Status Date / Time No Known Allergies Allergy Unverified 02/11/19 15:42 Vital Signs Vital Signs - 24 hr 10/04/19 16:50 10/04/19 19:05 10/04/19 19:26 Temperature 98.2 F 98.3 F 98.5
[2019-10-05 08:21] LABS: Glucose Point of Care 110 (65-105)
[2019-10-05] MEDS: FERROUS SULFATE 324 MG TABLET PO ×2 (09:16→17:09)
[2019-10-05 11:35] LABS: Glucose Point of Care 133 (65-105)
[2019-10-05 14:15] VITALS: BP 119/56; PULSE 69; RESP 12; TEMP 36.5; O2SAT 94
[2019-10-05 14:37] LABS: Hematocrit 24.4 % (42.0-52.0); Hemoglobin 7.8 g/dL (14.0-18.0)
--- NOTE | 2019-10-05 15:34 | PM.IMPN ---
Progress Note: A&P Assessment and Plan (1) Symptomatic anemia: Code(s): D64.9 - Anemia, unspecified Status: Acute Assessment and Plan: The patient is being transfussed 2 units of pRBCs 10/05/19 15:34 Patient is 79-year-old male with history of chronic anemia has had extensive workup including EGD, colonoscopy and capsule endoscopy is found to have a gastric upper GI angiodysplasias. Also patient history of proximal atrial fibrillation for which he is taking chronically for Xarelto, patient was seen by GI routine evaluation is office, patient was found to have hemoglobin of 4.7 and last known hemoglobin was 8.5 about a month ago, patient was referred to emergency depart for further evaluation he had 2 units of pack RBC and this morning is a hemoglobin is stable, patient denies any symptoms of abdominal pain nausea or vomiting, suggesting patient has a chronic slow blood loss most likely secondary to gastric upper GI angiodysplasias which is aggravated by chronic Xarelto which has been placed on hold. Will continue to monitor the patient overnight and further recommendation to follow (2) Diabetes mellitus: Qualifiers: Diabetes mellitus type: type 2 Diabetes mellitus intermediate teacher insulin use: without intermediate teacher use Diabetes mellitus complication status: without complication Qualified Code(s): E11.9 - Type 2 diabetes mellitus without complications Code(s): E11.9 - Type 2 diabetes mellitus without complications Status: Acute (3) Chronic back pain: Qualifiers: Back pain location: back pain in unspecified location Back pain laterality: unspecified Qualified Code(s): M54.9 - Dorsalgia, unspecified; G89.29 - Other chronic pain Code(s): M54.9 - Dorsalgia, unspecified; G89.29 - Other chronic pain Status: Chronic Assessment and Plan: Pain control as needed. (4) Paroxysmal atrial fibrillation: Code(s): I48.0 - Paroxysmal atrial fibrillation Status: Chronic Assessment and Plan: Currently in sinus rhythm. Subjective Date/time seen: 10/05/19 15:34 Patient is 79-year-old male with history of chronic anemia has had extensive workup including EGD, colonoscopy and capsule endoscopy is found to have a gastric upper GI angiodysplasias. Also patient history of proximal atrial fibrillation for which he is taking chronically for Xarelto, patient was seen by GI routine evaluation is office, patient was found to have hemoglobin of 4.7 and last known hemoglobin was 8.5 about a month ago, patient was referred to emergency depart for further evaluation he had 2 units of pack RBC and this morning is a hemoglobin is stable, patient denies any symptoms of abdominal pain nausea or vomiting, suggesting patient has a chronic slow blood loss most likely secondary to gastric upper GI angiodysplasias which is aggravated by chronic Xarelto which has been placed on hold. Will continue to monitor the patient overnight and further recommendation to follow Review of Systems Review of Systems: All systems reviewed & are unremarkable except as noted in HPI and below Exam Const: General: comfortable and no acute distress HENMT: General nose exam: Normal nares present Eyes: General: appearance normal, both eyes and all related structures Sclera: sclerae normal Neck: Neck: supple Resp: Effort & Inspection: normal respiratory effort Auscultation: clear to auscultation bilaterally Cardio: Rate: regular rate Rhythm: regular rhythm GI: Auscultation: normal bowel sounds Skin: General skin exam: normal color Neuro: Speech: normal speech Sensory Exam: normal sensation Extrem: General: normal to inspection Psych: Affect: Anxious affect present Objective Data Vital Signs Vital Signs: Vital Signs - 24 hr 10/04/19 16:50 10/04/19 19:05 10/04/19 19:26 Temperature 98.2 F 98.3 F 98.5 F Pulse Rate 82 78 79 Respiratory Rate 18 18 18 Blood Pressure 140/50 L 135/71 143/6
[2019-10-05 16:39] LABS: Glucose Point of Care 106 (65-105)
[2019-10-05 19:57] LABS: Hematocrit 23.5 % (42.0-52.0); Hemoglobin 7.5 g/dL (14.0-18.0)
[2019-10-05 20:34] LABS: IFOB Positive Control Positive; Immunochemical Fecal Occult Bl Positive (N)
[2019-10-05 21:42] LABS: Glucose Point of Care 99 (65-105)
[2019-10-05 21:46] VITALS: BP 132/63; PULSE 72; RESP 18; TEMP 36.2; O2SAT 98
[2019-10-06] VITALS (7 sets, daily range): BP systolic 85–123; BP diastolic 38–74; PULSE 59–75; RESP 16–20; TEMP 36.3–36.8; O2SAT 97–100
[2019-10-06 05:54] LABS: Hematocrit 23.7 % (42.0-52.0); Hemoglobin 7.5 g/dL (14.0-18.0); Mean Corpuscular HGB Conc 31.6 g/dl (32-36); Mean Corpuscular Hemoglobin 32.2 pg (26-34); Mean Corpuscular Volume 101.7 fl (80-100); Mean Platelet Volume 10.6 fl (7.4-10.4); Platelet Count Result 179 k/mm3 (150-375); Red Blood Count 2.33 M/mm3 (4.6-6.20); Red Cell Distribution Width 23.5 % (11.5-14.5); White Blood Count 5.7 K/mm3 (4.5-10.0)
[2019-10-06 06:11] LABS: Blood Urea Nitrogen 21 mg/dL (9-20); Calcium 8.4 mg/dL (8.4-10.2); Carbon Dioxide 26 mmol/L (22-30); Chloride 108 mmol/L (98-107); Estimated CRCL calculation 43 ml/min; Estimated Glomerular Filt Rate > 60; Glucose 97 mg/dL (75-110); Potassium 3.8 mmol/L (3.4-5.0); Sodium 138 mmol/L (137-145)
[2019-10-06 08:13] LABS: Glucose Point of Care 115 (65-105)
[2019-10-06] MEDS: LACTATED RINGERS 1,000 ML 150 ML IV CONT (11:12)
[2019-10-06 11:16] LABS: Glucose Point of Care 99 (65-105)
--- NOTE | 2019-10-06 11:21 | WPDANESEPPF ---
Anes - Initial Pre Proc Eval Procedure: Operation Date: 10/06/19 11:30 Proposed Procedures p Esophagogastroduodenoscopy - Tim Chun MD Date/Time: 10/06/19 11:21 Surgeon: Otto Li MD Pre Op Diagnosis: anemia Patient Data Age: 79 Gender: M Height: 5 ft 5 in Weight: 78.4 kg Last Vital Signs Temp 97.3 F L 10/06/19 11:16 Pulse 75 10/06/19 11:16 Resp 20 10/06/19 11:16 BP 123/64 10/06/19 11:16 Pulse Ox 100 10/06/19 11:16 Allergies Allergy/AdvReac Type Severity Reaction Status Date / Time No Known Allergies Allergy Unverified 10/05/19 08:42 Home Medications Medication Instructions Recorded Confirmed Type metformin 500 mg tablet 500 mg PO DAILY #90 tablet 02/11/19 10/04/19 Rx amiodarone 200 mg tablet 200 mg PO DAILY 03/30/19 06/14/19 History diltiazem HCl 240 mg 240 mg PO DAILY 03/30/19 06/14/19 History capsule,extended release 24 hr rivaroxaban 20 mg tablet 20 mg PO QPM 03/30/19 06/14/19 History B12 Active 1,000 mcg PO DAILY 06/14/19 06/14/19 History ferrous sulfate [Feosol] 325 mg PO BID 06/14/19 06/14/19 History gabapentin 300 mg PO HS 06/14/19 06/14/19 History pantoprazole 40 mg PO QAM #30 tablet 06/18/19 Rx atorvastatin 20 mg tablet 20 mg PO DAILY #90 tablet 07/08/19 Rx metformin 500 mg tablet 500 mg PO DAILY #90 tablet 09/16/19 Rx diltiazem HCl 240 mg PO DAILY 10/04/19 10/04/19 History gabapentin 600 mg PO HS 10/04/19 10/04/19 History ibuprofen 600 mg PO DAILY 10/04/19 10/04/19 History Laboratory Tests 10/05/19 10/05/19 10/05/19 11:33 13:25 14:32 WBC RBC Hgb 7.8 g/dL L g/dL (14.0-18.0) Hct 24.4 % L % (42.0-52.0) MCV MCH MCHC RDW Plt Count MPV Sodium Potassium Chloride Carbon Dioxide BUN Creatinine Estim Creat Clear Calc Estimated GFR Glucose POC Capillary Glucose 133 mg/dl H mg/dl (65-105) Calcium Stl Occult Blood (IFOB) Positive H (N) 10/05/19 10/05/19 10/05/19 16:37 19:53 21:39 WBC RBC Hgb 7.5 g/dL L g/dL (14.0-18.0) Hct 23.5 % L % (42.0-52.0) MCV MCH MCHC RDW Plt Count MPV Sodium Potassium Chloride Carbon Dioxide BUN Creatinine Estim Creat Clear Calc Estimated GFR Glucose POC Capillary Glucose 106 mg/dl mg/dl 99 mg/dl mg/dl (65-105) (65-105) Calcium Stl Occult Blood (IFOB) 10/06/19 10/06/19 10/06/19 05:27 05:27 08:02 WBC 5.7 K/mm3 K/mm3 (4.5-10.0) RBC 2.33 M/mm3 L M/mm3 (4.6-6.20) Hgb 7.5 g/dL L g/dL (14.0-18.0) Hct 23.7 % L % (42.0-52.0) MCV 101.7 fl H fl (80-100) MCH 32.2 pg pg (26-34) MCHC 31.6 g/dl L g/dl (32-36) RDW 23.5 % H % (11.5-14.5) Plt Count 179 k/mm3 k/mm3 (150-375) MPV 10.6 fl H fl (7.4-10.4) Sodium 138 mmol/L mmol/L (137-145) Potassium 3.8 mmol/L mmol/L (3.4-5.0) Chloride 108 mmol/L H mmol/L (98-107) Carbon Dioxide 26 mmol/L mmol/L (22-30) BUN 21 mg/dL H D mg/dL (9-20) Creatinine 1.10 mg/dL mg/dL (0.7-1.3) Estim Creat Clear Calc 43 ml/min ml/min Estimated GFR > 60 (59 - ) Glucose 97 mg/dL mg/dL (75-110) POC Capillary Glucose 115 mg/dl H mg/dl (65-105) Calcium 8.4 mg/dL mg/dL (8.4-10.2) Stl Occult Blood (IFOB) 10/06/19 11:14 WBC RBC Hgb Hct MCV MCH MCHC RDW Plt Count
[2019-10-06] MEDS: BENZOCAINE (*SP) 60 ML SPRAY CAN (HURRICAINE) 1 SPRAY MUCOUS MEM (11:50)
[2019-10-06] MEDS: SIMETHICONE ORAL SUSPENSION 20 MG/0.3 ML 30 ML BOTTLE PO (11:55)
[2019-10-06] MEDS: FERROUS SULFATE 324 MG TABLET PO (12:58)
[2019-10-06] MEDS: metFORMIN HCL 500 MG TABLET PO (12:59)
--- NOTE | 2019-10-06 13:13 | PM.DS ---
DS: Admitting Diagnosis Admitting Diagnosis Admitting Diagnosis: Anemia, unspecified DS: Discharge Diagnosis Discharge Diagnosis (1) Symptomatic anemia: Code(s): D64.9 - Anemia, unspecified Status: Acute Assessment and Plan: The patient is being transfussed 2 units of pRBCs. The patient's anemia has been thought to be due to a slow GI bleed and the patient has been followed by Dr. Chun. We will consider Hematology consultation vs. outpatient referral. He has already recieved 1 unit of pRBCs transfused and routine blood work for anemia would likely be unreliable because of the transfusion. Bedrest. Fall precautions. Monitor H/H, transfuse prn. Check FOBT. (2) Diabetes mellitus: Qualifiers: Diabetes mellitus type: type 2 Diabetes mellitus terminal carman insulin use: without terminal carman use Diabetes mellitus complication status: without complication Qualified Code(s): E11.9 - Type 2 diabetes mellitus without complications Code(s): E11.9 - Type 2 diabetes mellitus without complications Status: Chronic Assessment and Plan: Accuchekcs, SSI coverage, Hypoglycemic protocol. (3) Chronic back pain: Qualifiers: Back pain location: back pain in unspecified location Back pain laterality: unspecified Qualified Code(s): M54.9 - Dorsalgia, unspecified; G89.29 - Other chronic pain Code(s): M54.9 - Dorsalgia, unspecified; G89.29 - Other chronic pain Status: Chronic Assessment and Plan: Pain control as needed. (4) Paroxysmal atrial fibrillation: Code(s): I48.0 - Paroxysmal atrial fibrillation Status: Chronic Assessment and Plan: Currently in sinus rhythm. DS: Summary Hospital Course Reason for hospitalization: This is a 79 Diabetic male with known history of paroxysmal atrial fibrillation on Xarelto therapy and chronic back pain who presented to the hospital after Dr. Chun found his Hgb to be 4.7 today. The patient has had two previous hospitalizations in the recent past which required blood transfusions for anemia and has had various endoscopic procedures by Dr. Chun which so far have not uncovered any sources of GI bleeding. He has had generalized weakness and exertional shortness of breath over the past few weeks although he denies any chest pain or dizziness. He has chronic black stools which he attributes to iron supplements. He denies any bright red rectal bleeding. He also has not had any nausea, vomiting, chest pain or abdominal pain. The patient also takes 600 mg of Ibuprofen 2-3 times daily for chronic back pain. He also admits to drinking 2 beers daily. He is scheduled to have a stress test this upcoming Friday by Cardiology. The patient has been admitted to the hospital and currently receiving his second unit of pRBCs. He denies any fevers, chills, cough or other symptoms. He has not seen hematology for his chronic symptomatic anemia. Hospital Course: The patient is being transfussed 2 units of pRBCs. The patient's anemia has been thought to be due to a slow GI bleed and the patient has been followed by Dr. Chun. We will consider Hematology consultation vs. outpatient referral. He has already recieved 1 unit of pRBCs transfused and routine blood work for anemia would likely be unreliable because of the transfusion. Bedrest. Fall precautions. Monitor H/H, transfuse prn. Check FOBT. patient has history of gastric upper GI angiodysplasias and on Xarelto has chronic bleeding, will hold Xarelto, seen by GI, cliniclly stable, will have EGD as an outpatient. Status at Discharge Functional status at discharge: uses cane/walker Overall status at discharge: patient is back to baseline Time Spent with Patient Time attestation: Total time spent providing and/or coordinating discharge services: Patient was seen and examined at the time of the discharge Condition at discharge is stable Code status: Full code. Time spent preparing discharg
== END 2019-10-06 15:13 | disposition home or self-care (01) ==
LOC: ANHED 19:34 → ANH3MED 19:50
PROVIDERS: Family Medicine; Internal Medicine Gastroenterology; Admitting Provider Family Medicine; Emergency Provider Emergency Medicine; PCP Internal Medicine; Visit Provider Family Medicine
PROC: 0DJ08ZZ Inspection of Upper Intestinal Tract, Via Natural or Artificial Opening Endoscopic (ICD-10-PCS; CPT 43235; principal; 2019-10-06 11:30)
DX: D50.9 Iron deficiency anemia, unspecified (principal); K31.819 Angiodysplasia of stomach and duodenum without bleeding; R19.5 Other fecal abnormalities; I48.91 Unspecified atrial fibrillation; E11.9 Type 2 diabetes mellitus without complications; M54.9 Dorsalgia, unspecified; G89.29 Other chronic pain; I48.0 Paroxysmal atrial fibrillation; Z86.010 Personal history of colon polyps; Z87.891 Personal history of nicotine dependence; Z86.14 Personal history of Methicillin resistant Staphylococcus aureus infection; Z79.4 Long term (current) use of insulin
CPT/HCPCS: 43235; 36415; 36430; 80048; 80053; 82274; 85014; 85018; 85025; 85027; 85610; 85730; 86850; 86900; 86901; 86923; 93005; 96360; 96361; 99285; A9270; G0378; J2704; J7050; J7120; P9016

== ENCOUNTER 2019-10-08 13:50 | Outpatient (CLI) | payer MEDICARE, SELFPAY ==
--- NOTE | 2019-10-13 14:06 | P.PCNPFT_ITS ---
PFT Interpretation PFT Interpretation: DOS: 10/08/2019 REQUESTING: Dr. 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 Spirometry: FEV1 is 88% normal. FVC 76% mildly reduced. FEV 1% is normal. No bronchodilator was given. Lung volumes: TLC 84% normal, RV 74% normal, normal airway resistance. Diffusion: DLCO is 49%, moderately reduced. Flow volume loop: Unremarkable. IMPRESSION: Isolated moderate reduction in DLCO 49% predicted. Changes in DLCO are not specific for amiodarone toxicity. There are no old studies for comparison. Clinical correlation is advised. Mira Guzman MD
== END 2019-10-08 13:51 | disposition home or self-care (01) ==
PROVIDERS: PCP Internal Medicine; Visit Provider Internal Medicine Cardiovascular Disease
DX: Z79.899 Other long term (current) drug therapy (principal)
CPT/HCPCS: 94375; 94726; 94729

== ENCOUNTER 2019-10-25 12:05 | Outpatient (CLI) | payer MEDICARE, SELFPAY ==
[2019-10-25 12:40] LABS: Alanine Aminotransferase 42 U/L (4-50); Albumin Level 3.8 g/dL (3.5-5.1); Alkaline Phosphatase 102 U/L (38-126); Anion Gap 10.2 mmol/L (7-16); Aspartate Amino Transferase 53 U/L (17-59); Bilirubin,Total 0.2 mg/dL (0.2-1.3); Blood Urea Nitrogen 22 mg/dL (9-20); Calcium 8.8 mg/dL (8.4-10.2); Carbon Dioxide 25 mmol/L (22-30); Chloride 103 mmol/L (98-107); Cholesterol 128 mg/dL (0-200); Estimated Glomerular Filt Rate > 60; Glucose 92 mg/dL (75-110); HDL Direct 59 mg/dL; Potassium 4.2 mmol/L (3.4-5.0); Sodium 134 mmol/L (137-145); Triglycerides 79 mg/dL (<150)
[2019-10-25 12:51] LABS: LDL Cholesterol Direct 55 mg/dL
[2019-10-25 13:15] LABS: Hemoglobin A1C 4.5 % (<5.7)
== END 2019-10-25 12:06 | disposition home or self-care (01) ==
PROVIDERS: PCP Internal Medicine; Visit Provider Internal Medicine
DX: E78.5 Hyperlipidemia, unspecified (principal); Z79.899 Other long term (current) drug therapy; I10 Essential (primary) hypertension; R73.03 Prediabetes
CPT/HCPCS: 36415; 80053; 80061; 83036; 85027

== ENCOUNTER 2019-11-08 13:18 | Outpatient (RCR) | payer MEDICARE, SELFPAY ==
[2019-10-18 14:09] LABS: Hematocrit 30.7 % (42.0-52.0); Hemoglobin 9.5 g/dL (14.0-18.0); Mean Corpuscular HGB Conc 30.9 g/dl (32-36); Mean Corpuscular Hemoglobin 31.6 pg (26-34); Platelet Count Result 286 k/mm3 (150-375); Red Blood Count 3.01 M/mm3 (4.6-6.20); Red Cell Distribution Width 18.6 % (11.5-14.5); White Blood Count 5.4 K/mm3 (4.5-10.0)
[2019-10-25 12:28] LABS: Hematocrit 33.1 % (42.0-52.0); Hemoglobin 10.6 g/dL (14.0-18.0); Mean Corpuscular Hemoglobin 32.6 pg (26-34); Mean Corpuscular Volume 101.8 fl (80-100); Mean Platelet Volume 10.2 fl (7.4-10.4); Platelet Count Result 232 k/mm3 (150-375); Red Blood Count 3.25 M/mm3 (4.6-6.20); Red Cell Distribution Width 18.4 % (11.5-14.5); White Blood Count 5.4 K/mm3 (4.5-10.0)
[2019-11-01 13:10] LABS: Hematocrit 36.8 % (42.0-52.0); Hemoglobin 11.7 g/dL (14.0-18.0); Mean Corpuscular HGB Conc 31.8 g/dl (32-36); Mean Corpuscular Hemoglobin 32.4 pg (26-34); Mean Corpuscular Volume 101.9 fl (80-100); Mean Platelet Volume 10.7 fl (7.4-10.4); Platelet Count Result 198 k/mm3 (150-375); Red Blood Count 3.61 M/mm3 (4.6-6.20); Red Cell Distribution Width 17.9 % (11.5-14.5); White Blood Count 7.1 K/mm3 (4.5-10.0)
[2019-11-08 14:00] LABS: Basophils Absolute Auto 0.1 K/mm3 (0.0-0.1); Basophils Percent Auto 0.8 % (0.2-1.2); Eosinophils Absolute Auto 0.2 K/mm3 (0-0.3); Eosinophils Percent Auto 3.6 % (0-4.4); Hematocrit 38.1 % (42.0-52.0); Hemoglobin 12.3 g/dL (14.0-18.0); Immature Granulocyte Absolute 0.01 K/mm3 (0.00-0.031); Immature Granulocyte Percent A 0.2 % (0-0.5); Lymphocytes Absolute Auto 0.86 K/mm3 (0.9-3.2); Lymphocytes Percent Auto 14.1 % (18.3-44.2); Mean Corpuscular HGB Conc 32.3 g/dl (32-36); Mean Corpuscular Hemoglobin 32.9 pg (26-34); Mean Corpuscular Volume 101.9 fl (80-100); Mean Platelet Volume 10.8 fl (7.4-10.4); Monocytes Absolute Auto 0.9 K/mm3 (0.1-0.6); Monocytes Percent Auto 14.1 % (2.6-8.5); Neutrophils Absolute Auto 4.1 K/mm3 (1.3-6.7); Neutrophils Percent Auto 67.2 % (45.5-73.1); Platelet Count Result 209 k/mm3 (150-375); Red Blood Count 3.74 M/mm3 (4.6-6.20); Red Cell Distribution Width 17.3 % (11.5-14.5); White Blood Count 6.1 K/mm3 (4.5-10.0)
== END 2020-01-16 23:59 | disposition home or self-care (01) ==
LOC: ANHLAB 13:18
PROVIDERS: Family Medicine; PCP Internal Medicine; Visit Provider Internal Medicine Gastroenterology
DX: D64.9 Anemia, unspecified (principal)
CPT/HCPCS: 36415; 85025; 85027

== ENCOUNTER 2020-01-05 13:09 | Outpatient (RCR) | payer MEDICARE, SELFPAY ==
[2019-12-07 16:14] LABS: Hematocrit 42.6 % (42.0-52.0); Mean Corpuscular HGB Conc 32.9 g/dl (32-36); Mean Corpuscular Hemoglobin 32.3 pg (26-34); Mean Corpuscular Volume 98.4 fl (80-100); Mean Platelet Volume 10.6 fl (7.4-10.4); Platelet Count Result 209 k/mm3 (150-375); Red Blood Count 4.33 M/mm3 (4.6-6.20); Red Cell Distribution Width 15.8 % (11.5-14.5); White Blood Count 6.8 K/mm3 (4.5-10.0)
[2020-01-05 13:46] LABS: Hemoglobin 14.1 g/dL (14.0-18.0); Mean Corpuscular HGB Conc 33.6 g/dl (32-36); Mean Corpuscular Hemoglobin 33.3 pg (26-34); Mean Corpuscular Volume 99.3 fl (80-100); Mean Platelet Volume 10.7 fl (7.4-10.4); Platelet Count Result 196 k/mm3 (150-375); Red Blood Count 4.23 M/mm3 (4.6-6.20); Red Cell Distribution Width 15.5 % (11.5-14.5); White Blood Count 7.1 K/mm3 (4.5-10.0)
== END 2020-03-06 23:59 | disposition home or self-care (01) ==
LOC: ANHLAB 13:09
PROVIDERS: PCP Internal Medicine; Visit Provider Internal Medicine Gastroenterology
DX: D50.9 Iron deficiency anemia, unspecified (principal)
CPT/HCPCS: 36415; 85027

== ENCOUNTER 2020-11-02 15:01 | Outpatient (CLI) | payer MEDICARE, SELFPAY ==
[2020-11-02 15:20] LABS: Hematocrit 45.1 % (42.0-52.0); Hemoglobin 15.4 g/dL (14.0-18.0)
[2020-11-02 15:31] LABS: Alanine Aminotransferase 29 U/L (4-50); Albumin Level 4.5 g/dL (3.5-5.1); Alkaline Phosphatase 110 U/L (38-126); Anion Gap 9 mmol/L (8-16); Aspartate Amino Transferase 46 U/L (17-59); Bilirubin,Total 0.6 mg/dL (0.2-1.3); Blood Urea Nitrogen 23 mg/dL (9-20); Calcium 9.8 mg/dL (8.4-10.2); Carbon Dioxide 25 mmol/L (22-30); Chloride 101 mmol/L (98-107); Cholesterol 151 mg/dL (0-200); Estimated Glomerular Filt Rate 53; Glucose 80 mg/dL (65-110); HDL Direct 73 mg/dL; Potassium 4.6 mmol/L (3.4-5.0); Sodium 135 mmol/L (137-145); Triglycerides 141 mg/dL (<150)
[2020-11-02 15:42] LABS: LDL Cholesterol Direct 58 mg/dL
== END 2020-11-02 15:02 | disposition home or self-care (01) ==
LOC: ANHLAB 15:04
PROVIDERS: PCP Internal Medicine; Visit Provider Internal Medicine
DX: E78.5 Hyperlipidemia, unspecified (principal); D64.9 Anemia, unspecified; I10 Essential (primary) hypertension; Z79.899 Other long term (current) drug therapy
CPT/HCPCS: 36415; 80053; 80061; 85014; 85018

== ENCOUNTER 2021-05-15 16:37 | Outpatient (CLI) | payer MEDICARE, SELFPAY ==
[2021-05-15 18:21] LABS: Alanine Aminotransferase 26 U/L (4-50); Albumin Level 4.3 g/dL (3.5-5.1); Alkaline Phosphatase 110 U/L (38-126); Anion Gap 4 mmol/L (8-16); Aspartate Amino Transferase 39 U/L (17-59); Bilirubin,Total 0.5 mg/dL (0.2-1.3); Blood Urea Nitrogen 19 mg/dL (9-20); Calcium 9.5 mg/dL (8.4-10.2); Carbon Dioxide 30 mmol/L (22-30); Chloride 105 mmol/L (98-107); Cholesterol 149 mg/dL (0-200); Estimated Glomerular Filt Rate > 60; Glucose 94 mg/dL (65-110); HDL Direct 71 mg/dL; Potassium 4.5 mmol/L (3.4-5.0); Sodium 139 mmol/L (137-145); Triglycerides 83 mg/dL (<150)
[2021-05-15 18:32] LABS: LDL Cholesterol Direct 55 mg/dL
[2021-05-15 19:58] LABS: Hemoglobin A1C 5.7 % (<5.7)
== END 2021-05-15 16:38 | disposition home or self-care (01) ==
LOC: ANHLAB 16:41
PROVIDERS: PCP Internal Medicine; Visit Provider Nurse Practitioner
DX: E78.5 Hyperlipidemia, unspecified (principal); R73.03 Prediabetes
CPT/HCPCS: 36415; 80053; 80061; 83036

== ENCOUNTER 2022-02-12 16:56 | Emergency (ER) | payer MEDICARE, SELFPAY ==
--- NOTE | ~2022-02-12 | CT_ITS ---
EXAMINATION: CT facial & cervical spine wo DATE: 02/12/2022 19:55 INDICATION: Head injury TECHNIQUE: Computed tomography (CT) of the maxillofacial region and cervical spine was performed with out intravenous contrast. The dose-length product (DLP) was 553.92 mGy-cm. Automated exposure control and iterative reconstruction technique were employed. COMPARISON: 12/30/2018 FINDINGS: MAXILLOFACIAL CT: There are comminuted bilateral nasal bone fractures with displacement. There is a left frontal scalp hematoma. There is moderate opacification of the left maxillary sinus. Changes in the globes are like ly from ocular lens surgery. The orbits are unremarkable. There are 4 mm of rightward deviation of th e nasal septum which appears chronic. CERVICAL SPINE CT: There are changes of instrumented posterior fusion and laminectomy from C4 through T1. The C4-C6 vert ebral bodies are fused. There is severe loss of intervertebral disc space height at C6-7 and C7-T1. T here are 2 mm of stable anterolisthesis of C3 on C4 and 4 mm of stable anterolisthesis of C7 on T1. T here are 2 mm of stable retrolisthesis of C4 on C5 and C5 on C6. The odontoid is intact. The preverte bral soft tissues are normal. No cervical spine fracture is identified. There is severe spondylosis o f the visualized upper thoracic spine. IMPRESSION: 1. Comminuted and displaced bilateral nasal bone fractures. 2. Surgical changes and severe spondylosis of the cervical spine without acute findings. Reviewed, dictated and finalized at location F. [employer]
--- NOTE | ~2022-02-12 | CT_ITS ---
EXAMINATION: CT brain wo con INDICATION: Head injury COMPARISON: None TECHNIQUE: Standard unenhanced head CT. The dose-length product (DLP) was 605.33 mGy-cm. The mA was a djusted according to patient size. Iterative reconstruction technique was employed. FINDINGS: There is no acute intraparenchymal hemorrhage. No evidence of mass lesion. No evidence of a cute infarction. There is mild periventricular and subcortical hypodensity probably related to small vessel ischemic disease. There is mild prominence of the sulci and ventricles related to cerebral atr ophy. Intracranial calcified cerebral atherosclerosis is noted. There are no extra-axial collections. There is no mass effect or midline shift. Changes in the globes are likely from ocular lens surgery. There are partially imaged comminuted nasal bone fractures with opacification of the left maxillary sinus and ethmoid air cells IMPRESSION: 1. No acute intracranial abnormality. 2. Age related findings. 3. Partially imaged comminuted nasal bone fractures with associated sinus opacification. Reviewed, dictated and finalized at location [facility]. [employer] IMPRESSION: 1. No acute intracranial abnormality. 2. Age related findings. 3. Partially imaged comminuted nasal bone fractures with associated sinus opaci fication.
[2022-02-12 16:58] VITALS: BP 168/76; PULSE 97; RESP 14; TEMP 36.6; O2SAT 97
--- NOTE | 2022-02-12 19:08 | ED.FALL ---
HPI - Fall General Chief Complaint: Fall Stated Complaint: fall, nose deformity Time Seen by Provider: 02/12/22 18:51 History of Present Illness HPI Narrative: 81-year-old male history of hypertension, hyperlipidemia diabetes, A. fib and anemia presents to the emergency room for evaluation of a head injury. Patient states that he was walking in the kitchen using his walker, when the walker slipped out in front of him causing him to fall forward landing on his face. Patient denies any altered mental status or LOC. Denies confusion, dizziness. Reports an obvious bony abnormality to his nose. Related Data Home Medications Medication Instructions Recorded Confirmed mecobalamin (vitamin B12) 1,000 1,000 mcg PO DAILY 06/14/19 11/28/21 mcg chewable tablet (B12 Active) diltiazem HCl 240 mg 240 mg PO DAILY 10/04/19 11/28/21 capsule,extended release 24 hr ibuprofen 600 mg tablet 600 mg PO Q12H 05/22/21 11/28/21 Allergies Allergy/AdvReac Type Severity Reaction Status Date / Time No Known Allergies Allergy Verified 02/12/22 20:08 Review of Systems Review of Systems: CONSTITUTIONAL: Denies fever, chills, or sweats. EYES: Denies visual changes, redness, or discharge. ENT: Reports nasal pain CARDIOVASCULAR: Denies chest pain, palpitations, or edema. RESPIRATORY: Denies cough or dyspnea. GASTROINTESTINAL: Denies abdominal pain, nausea, vomiting, or diarrhea. GENITOURINARY: Denies dysuria or hematuria. SKIN: Reports facial laceration MUSCULOSKELETAL: Denies back pain, joint pain, or myalgia. NEUROLOGIC: Denies headache, numbness, dizziness, or weakness. PSYCHIATRIC: Denies anxiety or depression. [facility] Past Medical History Medical History Anemia due to chronic blood loss Arthritis Cataracts, bilateral Chronic back pain Diabetes mellitus Essential (primary) hypertension Gastro-esophageal reflux disease without esophagitis Gastrointestinal hemorrhage, unspecified History of rectal polyps Hyperlipidemia, unspecified Inguinal hernia Iron deficiency anemia, unspecified Low back pain MRSA (methicillin resistant Staphylococcus aureus) Paroxysmal atrial fibrillation Peripheral neuropathy Seasonal allergies Staphylococcal arthritis, right shoulder Type II diabetes mellitus Surgical History Surgical History H/O endoscopy H/O inguinal hernia repair H/O skin graft left leg H/O spinal fusion History of knee replacement, total bilateral History of rotator cuff surgery History of spinal surgery Hx of appendectomy Hx of tonsillectomy S/P cervical spinal fusion Family History Family History Mother Breast cancer Alzheimer disease Father Lung cancer Mother Arthritis Alzheimer disease Breast cancer Father Arthritis Lung cancer Social History Social History Smoking packs per day: 1 Smoking cigarettes per day: 20.0 Years smoked: 10 Smoking pack-years: 10.00 Smoking status: Former smoker Tobacco type: cigarettes Smoking end date: 03/31/71 Alcohol intake: never Drinks per week: 14 Substance use: never Substance use type: does not use Additional living arrangements comments: Pt lives with his . Gender identity (if verbalized by the patient): Male Spiritual care concerns: No Exam Narrative: GENERAL: Well-appearing, well-nourished, no physical limitations, and in no acute distress. HEAD: Normocephalic, atraumatic. EYES: Conjunctivae normal, PERRLA and EOMI. ENT: Obvious nasal deformity NECK: Supple. No meningeal signs. No adenopathy or masses. No carotid bruits or JVD CHEST: Clear to auscultation. No respiratory distress. No wheezes rales or rhonchi. No tenderness. HEART: Regular rate and rhythm. No murmur heard. Normal peripheral pulses. ABDOMEN: Sof
[2022-02-12] MEDS: TETANUS,DIPHTHERIA,AC PERTUSSIS ADULT (0.5 ML) BOOSTRIX IM (20:20)
== END 2022-02-12 20:07 | disposition home or self-care (01) ==
PROVIDERS: Emergency Provider Nurse Practitioner Family; PCP Internal Medicine
DX: S02.2XXA Fracture of nasal bones, initial encounter for closed fracture (principal); S01.81XA Laceration without foreign body of other part of head, initial encounter; Z23 Encounter for immunization; E78.5 Hyperlipidemia, unspecified; I10 Essential (primary) hypertension; I48.91 Unspecified atrial fibrillation; E11.42 Type 2 diabetes mellitus with diabetic polyneuropathy; D50.0 Iron deficiency anemia secondary to blood loss (chronic); M19.90 Unspecified osteoarthritis, unspecified site; K21.9 Gastro-esophageal reflux disease without esophagitis; Z87.19 Personal history of other diseases of the digestive system; Z86.14 Personal history of Methicillin resistant Staphylococcus aureus infection; Z98.1 Arthrodesis status; Z96.653 Presence of artificial knee joint, bilateral; Z79.84 Long term (current) use of oral hypoglycemic drugs; Z87.891 Personal history of nicotine dependence; W01.0XXA Fall on same level from slipping, tripping and stumbling without subsequent striking against object, initial encounter
CPT/HCPCS: 12011; 70450; 70486; 72125; 90471; 90715; 99284

== ENCOUNTER 2022-11-21 08:00 | Outpatient (NON) | payer MEDICARE, SELFPAY | END 2022-11-21 08:01 | disposition home or self-care (01) | PROVIDERS: PCP Internal Medicine; Visit Provider Nurse Practitioner | DX: C44.319 Basal cell carcinoma of skin of other parts of face (principal) | CPT/HCPCS: 88305 ==

== ENCOUNTER 2022-12-23 12:15 | Outpatient (NON) | payer MEDICARE, SELFPAY | END 2022-12-23 12:16 | disposition home or self-care (01) | LOC: ANHLAB 12:16 | PROVIDERS: PCP Nurse Practitioner; Visit Provider Nurse Practitioner | DX: C44.319 Basal cell carcinoma of skin of other parts of face (principal) | CPT/HCPCS: 88305; 88331 ==

== ENCOUNTER 2023-07-03 11:36 | Outpatient (CLI) | payer MEDICARE, SELFPAY ==
[2023-07-03 11:58] LABS: Hematocrit 44.3 % (42.0-52.0); Hemoglobin 15.2 g/dL (14.0-18.0); Mean Corpuscular HGB Conc 34.3 g/dl (32-36); Mean Corpuscular Hemoglobin 34.5 pg (26-34); Mean Corpuscular Volume 100.5 fl (80-100); Mean Platelet Volume 10.5 fl (7.4-10.4); Platelet Count Result 196 k/mm3 (150-375); Red Blood Count 4.41 M/mm3 (4.6-6.20); Red Cell Distribution Width 12.8 % (11.5-14.5); White Blood Count 6.8 K/mm3 (4.5-10.0)
[2023-07-03 12:10] LABS: Alanine Aminotransferase 26 U/L (6-50); Alkaline Phosphatase 113 U/L (38-126); Anion Gap 3 mmol/L (4-12); Aspartate Amino Transferase 39 U/L (17-59); Bilirubin,Total 1.2 mg/dL (0.2-1.3); Blood Urea Nitrogen 26 mg/dL (9-20); Calcium 9.4 mg/dL (8.4-10.2); Carbon Dioxide 28 mmol/L (22-30); Chloride 105 mmol/L (98-107); Cholesterol 130 mg/dL (0-200); Estimated Glomerular Filt Rate > 60; Glucose 96 mg/dL (65-110); HDL Direct 59 mg/dL; Sodium 136 mmol/L (137-145); Triglycerides 71 mg/dL (<150)
[2023-07-03 12:21] LABS: LDL Cholesterol Direct 60 mg/dL
[2023-07-03 21:10] LABS: Hemoglobin A1C 5.8 % (<5.7)
== END 2023-07-03 11:37 | disposition home or self-care (01) ==
LOC: ANHLAB 11:40
PROVIDERS: PCP Nurse Practitioner; Visit Provider Nurse Practitioner
DX: E78.5 Hyperlipidemia, unspecified (principal); D50.9 Iron deficiency anemia, unspecified; R73.03 Prediabetes
CPT/HCPCS: 36415; 80053; 80061; 83036; 85027

== ENCOUNTER 2024-01-15 12:17 | Outpatient (CLI) | payer MEDICARE, SELFPAY ==
[2024-01-15 12:35] LABS: Hematocrit 44.7 % (42.0-52.0); Hemoglobin 15.5 g/dL (14.0-18.0); Mean Corpuscular HGB Conc 34.7 g/dl (32-36); Mean Corpuscular Hemoglobin 35.6 pg (26-34); Mean Corpuscular Volume 102.5 fl (80-100); Platelet Count Result 188 k/mm3 (150-375); Red Blood Count 4.36 M/mm3 (4.6-6.20); Red Cell Distribution Width 13.1 % (11.5-14.5); White Blood Count 6.7 K/mm3 (4.5-10.0)
[2024-01-15 12:46] LABS: Alanine Aminotransferase 28 U/L (6-50); Albumin Level 4.3 g/dL (3.5-5.1); Alkaline Phosphatase 113 U/L (38-126); Anion Gap 7 mmol/L (4-12); Aspartate Amino Transferase 48 U/L (17-59); Bilirubin,Total 1.1 mg/dL (0.2-1.3); Blood Urea Nitrogen 23 mg/dL (9-20); Calcium 9.7 mg/dL (8.4-10.2); Carbon Dioxide 29 mmol/L (22-30); Chloride 104 mmol/L (98-107); Cholesterol 140 mg/dL (0-200); Estimated Glomerular Filt Rate > 60; Glucose 100 mg/dL (65-110); HDL Direct 75 mg/dL; Potassium 4.4 mmol/L (3.4-5.0); Sodium 140 mmol/L (137-145); Triglycerides 71 mg/dL (<150)
[2024-01-15 12:59] LABS: LDL Cholesterol Direct 42 mg/dL
[2024-01-15 13:06] LABS: Hemoglobin A1C 5.9 % (<5.7)
== END 2024-01-15 12:18 | disposition home or self-care (01) ==
PROVIDERS: PCP Nurse Practitioner; Visit Provider Nurse Practitioner
DX: E78.5 Hyperlipidemia, unspecified (principal); R73.03 Prediabetes; D50.0 Iron deficiency anemia secondary to blood loss (chronic)
CPT/HCPCS: 36415; 80053; 80061; 83036; 85027

== ENCOUNTER 2024-08-26 14:01 | Outpatient (CLI) | payer MEDICARE, SELFPAY ==
--- OUTSIDE RECORDS SUMMARY | 2024-08-26 14:07 | XMS_ITS | Clinical Summary ---
Author Organization [facility] [address] Address [address] [place] [address] Care Team Providers Care Stoner Out Name Role Phone Carlos Manuel Piper NP Primary Care Provider [phone] Allergies No known active allergies Medications metFORMIN (FORTAMET) 500 mg 24 hr tabletIndicatio ns:type 2 diabetes mellitus Take 1 tablet (500 mg total) by mouth daily with breakfast Active gabapentin (NEURONTIN) 300 mg capsuleIndicati ons:restless leg Take 2 capsules (600 mg total) by mouth nightly Active acetaminophen (TYLENOL) 500 mg tablet Take 2 tablets (1,000 mg total) by mouth daily Active cyanocobalamin (Vitamin B-12) 1,000 mcg tabletIndicatio ns:Prevention of Vitamin B12 Deficiency Take 1 tablet (1,000 mcg total) by mouth daily Active ibuprofen (ADVIL,MOTRIN) 600 mg tablet TAKE 1 TABLET(600 MG) BY MOUTH EVERY 6 HOURS NEEDED FOR PAIN 120 tablet 11 2 Active atorvastatin (LIPITOR) 20 mg tabletIndicatio ns:hyperlipidem ia Take 1 tablet (20 mg total) by mouth every morning 90 tablet 2 4 Active Tiadylt ER 240 mg 24 hr capsule TAKE 1 CAPSULE(240 MG) BY MOUTH DAILY 90 capsule 3 5 Active Active Problems Problem Noted Date Diagnosed Date Aortic root dilatation 09/11/2018 Hyperlipidemia 02/06/2018 Type 2 diabetes mellitus 02/06/2018 Chronic pain 02/06/2018 Former smoker 02/06/2018 Risk factors for obstructive sleep apnea 018 Iron deficiency anemia 02/06/2018 Pyogenic arthritis of right shoulder region 12/31 Overview (01/28/2018): Added automatically from request for surgery [id number] Assessment & Plan (02/09/2018 1:40 PM COIL BINDER): 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 Operative cultures obtained 02/06 were sent and are NGTD. Patient was noted to have gross purulence in the right shoulder joint intraoperatively. Currently on vanc/cefe. Pt would like to follow with this OSH ID physician, Dr. Adler. Recommendations: - continue vancomycin 1250mg IV q 24 hours and cefepime was changed to 2g IV q 24 hours ( cr cl. Is 50). -vanc trough drawn this am does not appear to be a true trough. - please obtain a VT before am dose tomorrow. -ID will formally s/o, but continue to follow the pt while in house - see plan of care note dated today 02/09/18. - pt will need cbc w/diff, bmp and vanc trough twice a week; hepatic function panel once a week. - fax labs to Dr. Adler at ; he has follow up with the pt scheduled for 02/17 @ 330 pm; Dr. Adler agreed to follow his opat labs. Pulmonary hypertension 01/20/2018 PAF (paroxysmal atrial fibrillation) 10/08/2017 Essential hypertension 10/08/2017 Chronic anticoagulation 10/08/2017 Resolved Problems Problem Noted Date Diagnosed Date Resolved Date long term care social worker current use of amiodarone 06/11/2019 04/17/2023 Surgical History Surgery Date Site/Laterality Comments REPLACEMENT TOTAL KNEE NECK SURGERY BACK SURGERY Medical History Medical History Date Comments Hypertension Atrial fibrillation (HCC) Pulmonary hypertension (HCC) 01/20/2018 PAF (paroxysmal atrial fibri llation) (HCC) 10/08/2017 Essential hypertension 10/08/2017 Pyogenic arthritis of right shoulder region (HCC) 01/28/2018 Added automatically from req uest for surgery [id number] Hyperlipidemia Anemia, iron deficiency T2DM (type 2 diabetes mellitus) (HCC) Family History Relation Name Status Comments Father (Age 87) Mother (Age 88) Social History Tobacco Use Types Packs/Day Years Used Date Smoking Tobacco: Former Cigarettes 1 12 1 04/01/1959 - 01/21/1972 Smokeless Tobacco: Never Tobacco Cessation:Counseling Given: Not Answered Alcohol Use Standard Drinks/Week Comments Yes 12 (1 standard drink = 0.6 oz pu re alcohol) Sex and Gender Information Value Date Recorded Sex Assigned at Not on file Legal Sex Male 5:57 AM COIL BINDER Gender Identity Not on file Sexual Orientation Not on file Obstetrics History Last Filed Vital Signs Vital Sign Reading Time Taken Comments Blood Pressure 132/72 04/27/2024 2:47 PM COIL BINDER Pulse 83 04/27/2024 2:47 PM COIL BINDER Temperature 36.8 C (98.3 F) 05/23/2018 11:42 AM COIL BINDER Respiratory Rate 16 05/23/2018 11:42 AM COIL BINDER Oxygen Saturation 95% 04/27/2024 2:47 PM COIL BINDER Inhaled Oxygen Concentration - - Weight 80.7 kg (178 lb) 04/27/2024 2:47 PM COIL BINDER Height 165.1 cm (5' 5) 04/27/2024 2:47 PM COIL BINDER Body Mass Index 29.62 04/27/2024 2:47 PM COIL BINDER Plan of Treatment Health Maintenance Due Date Last Done Comments Albumin Creatinine Ratio, Urine 1942 Depression Screening 1942 Fall Risk Assessment 1942 eGFR 1942 Dilated Eye Exam 1942 Foot Exam 1942 Hepatitis B Screening 1960 Pneumococcal vaccine 65+ (1 of 2 - PCV) 1961 Zoster Vaccine (1 of 2) 1992 Abdominal Aortic Aneurysm (A AA) Screen 2007 Well Visit 65+ 2007 Hemoglobin A1C 11/10/2018 05/13/2018, 05/01, 01/30/2018 Lipid Panel 12/31/2022 12/31/2021, 05/01, 02/07/2018, Additional history exists DTaP/Tdap/Td Vaccine (2 - Td or Tdap) 07/13/2024 07/13/2014, 11/02/2011 Influenza Vaccine (Season Ended) 2024 03/02/2014, 01/20/2013, 03/20/2012 Medical Devices Implanted Type Area Munitions Worker Device Identifier Shelf Expiration Date Model / Serial / Lot Other - See Comments Other - see comments Bilateral: Knee Other - See Comments Other - see comments N/A: Cervical-S acral Spine [employer] [id number] Interspace 46mm 11mm [id number] Shoulder Standard Spacer .8gm - [id number] Implanted:Qty: 1 on 02/06/2018 by Tesfaye Campbell MD at [facility] Right: Shoulder [employer] 09/27/2021 [id number] / / [id number] [employer] 1400igus Cemex Genta Iso Hand Mix; Bowl; Spatula Kit 40 Gm Bone Cement - [id number] Implanted:Qty: 1 on 02/06/2018 by Tesfaye Campbell MD at [facility] Right: Shoulder [employer] 06/28/2021 [id number] / / [id number] [employer] [id number] 10mm 130mm Shoulder Stem Humeral Trabecular Metal Tivanium - [id number] Implanted:Qty: 1 on 05/22/2018 by Tesfaye Capmbell MD at [facility] Right: Shoulder [employer] [id number] 04/30/2028 [id number] / / [id number] 6191-1-010 Simplex P Radiopaque Full Dose Cement Bone Sterile - [id number] Implanted:Qty: 1 on 05/22/2018 by Tesfaye Campbell MD at [facility] Right: Shoulder [employer] [id number] 6191-1-010 / / Description:1 gr vancomycin lot # [id number] exp 08/17 [employer] [id number] Latitude 8-15mm Restrictor Elbow Restrictor Cement - [id number] - [id number] Implanted:Qty: 1 on 05/22/2018 by Tesfaye Campbell MD at [facility] Right: Shoulder [employer] [id number] 03/04/2023 [id number] / [id number] / [employer] [id number] 36mm Reverse Humerus 7d +6mm Offset Standard Liner Shoulder - [id number] Implanted:Qty: 1 on 05/22/2018 by Tesfaye Campbell MD at [facility] Right: Shoulder [employer] [id number] 12/28/2025 [id number] / / [id number] [employer] [id number] 36mm Reverse Shoulder Sphere Glenoid Trabecular Metal - [id number] Implanted:Qty: 1 on 05/22/2018 by Tesfaye Campbell MD at [facility] Right: Shoulder [employer] [id number] 12/29/2027 [id number] / / [id number] [employer] [id number] 25mm Reverse Shoulder Baseplate Glenoid Trabecular Metal - [id number] Implanted:Qty: 1 on 05/22/2018 by Tesfaye Campbell MD at [facility] Right: Shoulder [employer] [id number] 04/30/2028 [id number] / / [id number] [employer] 01.03985.024 Ncb Anatomical Shoulder 4.5mm 24mm Inverse Reverse Lock Self Tap - [id number] Implanted:Qty: 1 on 05/22/2018 by Tesfaye Campbell MD at [facility] Right: Shoulder [employer] [id number] 06/28/2020 01.89167.024 / / [id number] [employer] 01.73734.030 Ncb Anatomical Shoulder 4.5mm 30mm Inverse Reverse Lock Self Tap - [id number] Implanted:Qty: 1 on 05/22/2018 by Tesfaye Campbell MD at [facility] Right: Shoulder [employer] [id number] 03/30/2022 01.88259.030 / / [id number] Explanted Type Area Munitions Worker Device Identifier Shelf Expiration Date Model / Serial / Lot [employer] [id number] Erik 3/32in 9in 2 Trocar Pin Fixation Nonsterile - [id number] Explanted:Qty: 1 on 05/22/2018 by Tesfaye Campbell MD at [facility] Right: Shoulder [employer] [id number] S / / Procedures Procedure Name Priority Date/Time Associated Diagnosis Comments LIPID PANEL Routine 12/31/2021 HEMOGLOBIN A1C Routine 05/13/2018 10:17 AM COIL BINDER Preoperative evaluation to rule out surgical contraindication from Last 3 Months or Most Recently Relevant to Health Maintenance Results * Lipid panel (12/31/2021) SCRIBED Cholesterol, Total 136 <200 [facility] SCRIBED HDL 66 >40 [facility] SCRIBED LDL 54 <100 [facility] SCRIBED Triglycerides 81 <150 [facility] Blood [facility] Provider LAB BLOOD ORDERABLES Edit ed Result - Final Performing Organization Address City/[facility]/ZIP Co de Phone Number [facility] * Hemoglobin A1c (05/13/2018 10:17 AM COIL BINDER) Hgb A1C 5.4 4.0 - 5.6 % [facility] Estimated Average Glucose 108 mg/dL [facility] Comment: The ADA recommends reporting an estimated Average Glucose (eAG) with all Hemoglobin A1c results using the equation derived from a study of 507 normal and diabetic adults. Minority populations were underrepresented and children were not included. (Diabetes Care 31:0450-7197, 2008). The eAG is not equivalent to a fasting glucose. Blood specimen (specimen) 05/13/2018 10:17 AM COIL BINDER 05/13/2018 11:20 AM COIL BINDER Narrative [facility] - 05/13/2018 12:23 PM COIL BINDER Suresh Lowe MD PhD LAB BLOOD ORDERAB LES Final Result Performing Organization Address City/[facility]/ZIP Co de Phone Number [facility] Department [place] [address] from Last 3 Months or Most Recently Relevant to Health Maintenance Insurance MEDICARE [facility] [employer]ET[employer] MEDICARE Advance Directives For more information, please contact: [phone] * Full Code (Latest Code Status on File) Date Activated Date Inactivated Comments 05/22/2018 5:35 PM 05/23/2018 5:42 PM * Full Code Date Activated Date Inactivated Comments 02/06/2018 8:21 PM 02/10/2018 3:32 PM Care Teams Stoner Out Relationship Specialty Start Date End Date Carlos Manuel Piper NP [address] [facility] [address] [place], [place] [id number] PCP - General Nurse Practitioner 04/17/23
--- OUTSIDE RECORDS SUMMARY | 2024-08-26 14:07 | XMS_ITS | Referral Summary ---
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 Operative cultures obtained 02/06 were sent and are NGTD. Patient was noted to have gross purulence in the right shoulder joint intraoperatively. Currently on vanc/cefe. Pt would like to follow with this OSH ID physician, Dr. Alder. 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 06/11/2019 04/17/2023 Social History Tobacco Use Types Packs/Day Years Used Date Smoking Tobacco: Former Cigarettes 1 12 1 04/01/1959 - 01/21/1972 Smokeless Tobacco: Never Tobacco Cessation:Counseling Given: Not Answered Alcohol Use Standard Drinks/Week Comments Yes 12 (1 standard drink = 0.6 oz pu re alcohol) Sex and Gender Information Value Date Recorded Sex Assigned at Not on file Legal Sex Male 5:57 AM TEXTILE SCIENCE TECHNICIAN Gender Identity Not on file Sexual Orientation Not on file Last Filed Vital Signs Vital Sign Reading Time Taken Comments Blood Pressure 132/72 04/27/2024 2:47 PM TEXTILE SCIENCE TECHNICIAN Pulse 83 04/27/2024 2:47 PM TEXTILE SCIENCE TECHNICIAN Temperature 36.8 C (98.3 F) 05/23/2018 11:42 AM TEXTILE SCIENCE TECHNICIAN Respiratory Rate 16 05/23/2018 11:42 AM TEXTILE SCIENCE TECHNICIAN Oxygen Saturation 95% 04/27/2024 2:47 PM TEXTILE SCIENCE TECHNICIAN Inhaled Oxygen Concentration - - Weight 80.7 kg (178 lb) 04/27/2024 2:47 PM TEXTILE SCIENCE TECHNICIAN Height 165.1 cm (5' 5) 04/27/2024 2:47 PM TEXTILE SCIENCE TECHNICIAN Body Mass Index 29.62 04/27/2024 2:47 PM TEXTILE SCIENCE TECHNICIAN Plan of Treatment Not on file Medical Devices Implanted Type Area It Systems Manager Device Identifier Shelf Expiration Date Model / Serial / Lot Other - See Comments Other - see comments Bilateral: Knee Other - See Comments Other - see comments N/A: Cervical-S acral Spine [employer] [id number] Interspace 46mm 11mm [id number] Shoulder Standard Spacer .8gm - [id number] Implanted:Qty: 1 on 02/06/2018 by Tesfaye Campbell MD at [facility] Right: Shoulder [employer] 09/27/2021 [id number] / / [id number] Ex[employer]ech 1400igus Cemex Genta Iso Hand Mix; Bowl; Spatula Kit 40 Gm Bone Cement - [id number] Implanted:Qty: 1 on 02/06/2018 by Tesfaye Campbell MD at [facility] Right: Shoulder [employer] 06/28/2021 [id number] / / [id number] [employer] [id number] 10mm 130mm Shoulder Stem Humeral Trabecular Metal Tivanium - [id number] Implanted:Qty: 1 on 05/22/2018 by Tesfaye Campbell MD at [facility] Right: Shoulder [employer] [id number] 04/30/2028 [id number] / / [id number] 6191-1-010 Simplex P Radiopaque Full Dose Cement Bone Sterile - [id number] Implanted:Qty: 1 on 05/22/2018 by Tesfaye Campbell MD at [facility] Right: Shoulder [employer] [id number] 6191-1-010 / / Description:1 gr vancomycin lot # [id number] 08/17 [employer] [id number] Latitude 8-15mm Restrictor Elbow Restrictor Cement - [id number] - [id number] Implanted:Qty: 1 on 05/22/2018 by Tesfaye Campbell MD at [facility] Right: Shoulder [employer] [id number] 03/04/2023 [id number] / [id number] / [employer] [id number] 36mm Reverse Humerus 7d +6mm Offset Standard Liner Shoulder - [id number] Implanted:Qty: 1 on 05/22/2018 by Tesfaye Campbell MD at [facility] Right: Shoulder [employer] [id number] 12/28/2025 [id number] / / [id number] [employer] [id number] 36mm Reverse Shoulder Sphere Glenoid Trabecular Metal - [id number] Implanted:Qty: 1 on 05/22/2018 by Tesfaye Campbell MD at [facility] Right: Shoulder [employer] [id number] 12/29/2027 [id number] / / [id number] [employer] [id number] 25mm Reverse Shoulder Baseplate Glenoid Trabecular Metal - [id number] Implanted:Qty: 1 on 05/22/2018 by Tesfaye Campbell MD at [facility] Right: Shoulder [employer] [id number] 04/30/2028 [id number] / / [id number] [employer] 01.53093.024 Ncb Anatomical Shoulder 4.5mm 24mm Inverse Reverse Lock Self Tap - [id number] Implanted:Qty: 1 on 05/22/2018 by Tesfaye Campbell MD at [facility] Right: Shoulder [employer] [id number] 06/28/2020 01.72571.024 / / [id number] [employer] 01.97737.030 Ncb Anatomical Shoulder 4.5mm 30mm Inverse Reverse Lock Self Tap - [id number] Implanted:Qty: 1 on 05/22/2018 by Tesfaye Campbell MD at [facility] Right: Shoulder [employer] [id number] 03/30/2022 01.07068.030 / / [id number] Explanted Type Area It Systems Manager Device Identifier Shelf Expiration Date Model / Serial / Lot [employer] [id number] Erik 3/32in 9in 2 Trocar Pin Fixation Nonsterile - [id number] Explanted:Qty: 1 on 05/22/2018 by Tesfaye Campbell MD at [facility] Right: Shoulder [employer] [id number] S / / Procedures Procedure Name Priority Date/Time Associated Diagnosis Comments LIPID PANEL Routine 12/31/2021 HEMOGLOBIN A1C Routine 05/13/2018 10:17 AM TEXTILE SCIENCE TECHNICIAN Preoperative evaluation to rule out surgical contraindication from Last 3 Months or Most Recently Relevant to Health Maintenance Results * Lipid panel (12/31/2021) SCRIBED Cholesterol, Total 136 <200 [facility] SCRIBED HDL 66 >40 [facility] SCRIBED LDL 54 <100 [facility] SCRIBED Triglycerides 81 <150 [facility] Blood Shady Provider LAB BLOOD ORDERABLES Edit ed Result - Final [facility] * Hemoglobin A1c (05/13/2018 10:17 AM TEXTILE SCIENCE TECHNICIAN) Hgb A1C 5.4 4.0 - 5.6 % ALLEN WILL Estimated Average Glucose 108 mg/dL ALLEN WILL Comment: The ADA recommends reporting an estimated Average Glucose (eAG) with all Hemoglobin A1c results using the equation derived from a study of 507 normal and diabetic adults. Minority populations were underrepresented and children were not included. (Diabetes Care 31:5067-7612, 2008). The eAG is not equivalent to a fasting glucose. Blood specimen (specimen) 05/13/2018 10:17 AM TEXTILE SCIENCE TECHNICIAN 05/13/2018 11:20 AM TEXTILE SCIENCE TECHNICIAN Narrative ALLEN WILL - 05/13/2018 12:23 PM TEXTILE SCIENCE TECHNICIAN Suresh Lowe MD PhD LAB BLOOD ORDERAB LES Final Result [facility] Department [place] [address] from Last 3 Months or Most Recently Relevant to Health Maintenance Insurance MEDICARE [facility] [employer] MEDICARE Advance Directives For more information, please contact: [phone] * Full Code (Latest Code Status on File) Date Activated Date Inactivated Comments 05/22/2018 5:35 PM 05/23/2018 5:42 PM * Full Code Date Activated Date Inactivated Comments 02/06/2018 8:21 PM 02/10/2018 3:32 PM Care Teams Slinger Sequins Relationship Specialty Start Date End Date Carlos Manuel Piper NP [address] [place], [place] [id number] PCP - General Nurse Practitioner 04/17/23
--- OUTSIDE RECORDS SUMMARY | 2024-08-26 14:07 | XMS_ITS | Clinical Summary ---
Author Organization [facility] Address [address] [place] [address] Care Team Providers Care Soft Work Wrapper Examiner Name Role Phone Omid Pagan MD Primary Care Provider + Social History Tobacco Use Types Packs/Day Years Used Date Smoking Tobacco: Never Assessed Sex and Gender Information Value Date Recorded Sex Assigned at Not on file Legal Sex Male 6:03 AM CDT Gender Identity Not on file Sexual Orientation Not on file Plan of Treatment Health Maintenance Due Date Last Done Comments DTAP/TDAP/TD VACCINES (1 - Tdap) 1961 PNEUMOCOCCAL VACCINE 50+ YEARS (1 of 1 - PCV) 05/09/18 93 ZOSTER VACCINE (1 of 2) 1992 RSV VACCINE (60+ or ) (1 - 1-dose 75+ series) 2017 INFLUENZA VACCINE (#1) 2023 Insurance MEDICARE PART A AND B [employer] ACCESS/TRUE BLUE PPO Care Teams Soft Work Wrapper Examiner Relationship Specialty Start Date End Date Omid Pagan MD PCP - General Internal Medicine 12/14/13
--- OUTSIDE RECORDS SUMMARY | 2024-08-26 14:07 | XMS_ITS | Continuity of Care Document ---
Author Organization [email or web address] Address [address] [place] [address] Phone Care Team Providers Care Flow Worker Name Role Phone Carlos Manuel León MD Unavailable Unavailable Advance Directives Directive Yes / No Effective Date File Name No Information Encounters Encounter Description Practice Location Reason(s) For Visit Diagnoses Date Provider Providers Copied on Encounter [facility], [address], [place], [place], [id number], [place] tel:[phone] [facility] No Information Mau Horowitz. [address] , [place], [place], [id number], [place]. tel:[phone] Referring Provider: Juanpablo Norwood DO, [address], [place], [address]. tel:[phone] Family History Family Member Type Diagnosis Age At Onset No Information Payers Payer name Insurance type Covered green party ID Authoriza tion(s) [place] [id number] BCBS INACTIVE OUT OF STATE [id number] Social History Type Description Quantity Date Captured Comments Sex Male Smoking Status No Information Sexual Orientation Straight or heterosexual Chief Complaint And Reason For Visit No Information Reason For Referral Reason For Referral No Information History Of Present Illness Encounter Date Complaint History Of Prese nt Illness No Information Functional Status Date Functional Assessmen t No Information Instructions Date Instruction Additional Infor mation No Information Assessments Type Assessment Date No Information Patient Care Teams Name Effective Dates (start - stop) Status Members No Information
[2024-08-26 14:59] LABS: Hematocrit 45.4 % (42.0-52.0); Hemoglobin 15.1 g/dL (14.0-18.0); Mean Corpuscular HGB Conc 33.3 g/dl (32-36); Mean Corpuscular Hemoglobin 33.5 pg (26-34); Mean Corpuscular Volume 100.7 fl (80-100); Mean Platelet Volume 10.7 fl (7.4-10.4); Platelet Count Result 232 k/mm3 (150-375); Red Blood Count 4.51 M/mm3 (4.6-6.20); Red Cell Distribution Width 13.3 % (11.5-14.5); White Blood Count 7.4 K/mm3 (4.5-10.0)
[2024-08-26 15:09] LABS: Alanine Aminotransferase 24 U/L (6-50); Albumin Level 4.2 g/dL (3.5-5.1); Alkaline Phosphatase 131 U/L (38-126); Anion Gap 7 mmol/L (4-12); Aspartate Amino Transferase 44 U/L (17-59); Bilirubin,Total 0.9 mg/dL (0.2-1.3); Blood Urea Nitrogen 21 mg/dL (9-20); Calcium 9.7 mg/dL (8.4-10.2); Carbon Dioxide 28 mmol/L (22-30); Chloride 106 mmol/L (98-107); Cholesterol 146 mg/dL (0-200); Estimated Glomerular Filt Rate > 60; Glucose 96 mg/dL (65-110); HDL Direct 71 mg/dL; Potassium 4.2 mmol/L (3.4-5.0); Sodium 141 mmol/L (137-145); Triglycerides 67 mg/dL (<150)
[2024-08-26 15:20] LABS: LDL Cholesterol Direct 52 mg/dL
== END 2024-08-26 14:02 | disposition home or self-care (01) ==
LOC: ANHLAB 14:02
PROVIDERS: PCP Nurse Practitioner; Visit Provider Nurse Practitioner
DX: E78.5 Hyperlipidemia, unspecified (principal); D50.9 Iron deficiency anemia, unspecified; R73.03 Prediabetes
CPT/HCPCS: 36415; 80053; 80061; 83036; 85027